=== PATIENT | male | born 1965 | race Caucasian/White ===

== ENCOUNTER → 2020-08-07 | Outpatient (CLI) | payer BC, MEDICARE ==
[2020-08-07 11:25] LABS: African American GFR (CKD) >90 (>60 ml/min/1.73 sqM); Blood Urea Nitrogen 22 mg/dL (9-20); Non-African American GFR(CKD) >90 (>60 ml/min/1.73 sqM)
--- NOTE | 2020-08-07 12:42 | CT ---
EXAMINATION TYPE: CT abdomen pelvis w con DATE OF EXAM: 08/07/2020 COMPARISON: None HISTORY: Ulcerative pancolitis CT DLP: 1634 mGycm CONTRAST: CT scan of the abdomen and pelvis is performed with Oral Contrast and with IV Contrast, patient injec juan a with 100 ml mL of Isovue 300. FINDINGS: LUNG BASES-: No visible nodule. No infiltrate. LIVER/GB: The gallbladder is surgically absent. No space occupying hepatic lesion. Biliary tree is of normal caliber. PANCREAS: No inflammation. No distinct mass. SPLEEN: No splenic enlargement. No lesion seen. ADRENALS: No nodule. No thickening. KIDNEYS/BLADDER: Atrophic changes left kidney with focal calcification noted. Compensatory hypertrop hy right kidney. No hydronephrosis. No nephrolithiasis. No distinct renal mass. Urinary bladder gr ossly unremarkable. BOWEL: Normal appendix. Normal bowel caliber. No inflammation. Sliding-type hiatal hernia. Surgical anastomosis of sigmoid colon. GENITAL ORGANS: No gross abnormality. LYMPH NODES: No greater than 1cm abdominal or pelvic lymph nodes are appreciated. AORTA: No significant abnormality. OSSEOUS STRUCTURES: No significant abnormality is seen. OTHER: No significant additional abnormality is seen. IMPRESSION: 1. No evidence for inflammatory change at this time.
== END | disposition home or self-care (01) ==
LOC: RADCTMAIN 09:33
PROVIDERS: ATTEND Family Medicine
DX: K51.00 Ulcerative (chronic) pancolitis without complications (principal); R10.9 Unspecified abdominal pain
CPT/HCPCS: 82565; 84520; 74177; 36415; Q9967

== ENCOUNTER 2021-07-03 11:19 | Observation (INO) | payer MEDICARE ==
[2021-07-03] MEDS ORDERED: SODIUM CHLORIDE 0.9% 1,000 ML IV STA (12:12)
[2021-07-03 12:47] LABS: Basophils % (A) 1 %; Eosinophils # (A) 0.2 k/uL (0-0.7); Eosinophils % (A) 3 %; HGB 15.6 gm/dL (13.0-17.5); Lymphocytes # (A) 0.9 k/uL (1.0-4.8); Lymphocytes % (A) 16 %; MCH 32.3 pg (25.0-35.0); MCHC 33.8 g/dL (31.0-37.0); MCV 95.6 fL (80.0-100.0); Mean Platelet Volume 8.1; Monocytes # (A) 0.3 k/uL (0-1.0); Monocytes % (A) 6 %; Neutrophils # (A) 3.9 k/uL (1.3-7.7); Neutrophils % (A) 71 %; Platelet Count 364 k/uL (150-450); RBC 4.81 m/uL (4.30-5.90); RDW 13.8 % (11.5-15.5); WBC 5.4 k/uL (3.8-10.6)
[2021-07-03 13:04] LABS: ALT 42 U/L (4-49); AST 29 U/L (17-59); African American GFR (CKD) >90 (>60 ml/min/1.73 sqM); Albumin 4.1 g/dL (3.5-5.0); Alkaline Phosphatase 72 U/L (38-126); Amylase 95 U/L (30-110); Anion Gap 19 mmol/L; Blood Urea Nitrogen 17 mg/dL (9-20); Calcium 10.7 mg/dL (8.4-10.2); Carbon Dioxide 19 mmol/L (22-30); Chloride 101 mmol/L (98-107); Glucose 185 mg/dL (74-99); Lipase 576 U/L (23-300); Non-African American GFR(CKD) 88 (>60 ml/min/1.73 sqM); Potassium 3.2 mmol/L (3.5-5.1); Sodium 139 mmol/L (137-145); Total Bilirubin 0.8 mg/dL (0.2-1.3); Total Protein 7.1 g/dL (6.3-8.2)
[2021-07-03] MEDS ORDERED: ONDANSETRON 4 MG/2 ML VIAL IVP STA (13:08)
--- NOTE | 2021-07-03 13:09 | ED ---
General Adult HPI - General Chief complaint: Abdominal Pain Stated complaint: nausea & abd pain Time Seen by Provider: 07/03/21 11:52 Source: patient, EMS, RN notes reviewed Mode of arrival: EMS Limitations: no limitations - History of Present Illness Initial comments: 56-year-old male with a complicated past medical history including diabetes mellitus, hypertension, GERD, renal disease, Hudson's disease, Chris's, presents to the emergency room for several complaints. Patient reports he has had abdominal pain for 3 weeks. States it seems to be worsening. States he now has left upper back pain radiating down the left arm. If this could be related to a rash as he has a rash on his lower back and upper back and right leg. Patient states that he was diagnosed with shingles last month by a roving frame tender. Patient states that for the past week he has not been able to eat or drink much. He has been nauseous. Patient has no other complaints at this time including shortness of breath, chest pain, nausea or vomiting, headache, or visual changes. - Related Data Home Medications Medication Instructions Recorded Confirmed CLIDINIUM-chlordiazePOXIDE [Librax] 1 cap PO BID 07/03/21 07/03/21 Gabapentin 300 mg PO BID PRN 07/03/21 07/03/21 Gabapentin 300 mg PO HS 07/03/21 07/03/21 Insulin NPH Human Isophane 50 units SQ PC-BID 07/03/21 07/03/21 [NovoLIN N] Insulin Regular, Human [NovoLIN R] See Protocol SQ AC-TID 07/03/21 07/03/21 Levothyroxine Sodium [Synthroid] 75 mcg PO HS 07/03/21 07/03/21 Losartan/Hydrochlorothiazide 1 tab PO HS 07/03/21 07/03/21 [Hyzaar 100-25 Tablet] Mercaptopurine [Purinethol] 50 mg PO BID 07/03/21 07/03/21 Metoclopramide [Reglan] 10 mg PO ACHS 07/03/21 07/03/21 Morphine Sulfate [Ms Contin] 15 mg PO HS 07/03/21 07/03/21 Naproxen 500 mg PO BID 07/03/21 07/03/21 Omeprazole 20 mg PO DAILY PRN 07/03/21 07/03/21 Omeprazole 20 mg PO HS 07/03/21 07/03/21 Testosterone [Androgel 1.62% Gel 1 pump TOPICAL DAILY 07/03/21 07/03/21 Pump] amLODIPine [Norvasc] 10 mg PO HS 07/03/21 07/03/21 minoxidiL [Loniten] 2.5 mg PO HS 07/03/21 07/03/21 oxyCODONE-APAP 10-325MG [Percocet 1 tab PO BID PRN 07/03/21 07/03/21 10-325 mg] oxyCODONE-APAP 10-325MG [Percocet 1 tab PO Q4H 07/03/21 07/03/21 10-325 mg] predniSONE 1 mg PO BID 07/03/21 07/03/21 Allergies Allergy/AdvReac Type Severity Reaction Status Date / Time Sulfa (Sulfonamide Allergy Rash/Hives Verified 07/03/21 13:46 Antibiotics) amoxicillin AdvReac Diarrhea/C Verified 07/03/21 13:46 Diff hydromorphone [From Dilaudid] AdvReac Rash/Hives Verified 07/03/21 13:46 Macrolide Antibiotics AdvReac Diarrhea/C Verified 07/03/21 13:46 Diff Oxazolidinone Antibacterials AdvReac Diarrhea/C Verified 07/03/21 13:46 Diff Penicillins AdvReac Diarrhea/C Verified 07/03/21 13:46 Diff Review of Systems ROS Statement: Those systems with pertinent positive or pertinent negative responses have been documented in the HPI. ROS Other: All systems not noted in ROS Statement are negative. Past Medical History Past Medical History: Diabetes Mellitus, GERD/Reflux, Hypertension, Musculoskeletal Disorder, Neurologic Disorder, Renal Disease, Thyroid Disorder Additional Past Medical History / Comment(s): Cushings syndrome, uncontrolled diabetes, hasimoto's, Metabolic Muscular Dystophy, Shingles (May 2021), partially functioning kidneys History of Any Multi-Drug Resistant Organisms: None Reported Past Surgical History: Appendectomy, Bowel Resection, Cholecystectomy Additional Past Surgical History / Comment(s): lipoma removals, sinus surgery, Past Psychological History: Anxiety Smoking Status: Former smoker Past Alcohol Use History: None Reported Past Drug Use History: None Reported General Exam Limitations: no limitations General appearance: alert, in no apparent distress Head exam: Present: atraumatic Eye exam: Present: normal appearance, PERRL, EOMI. Absent: scleral icterus, c onjunctival injection ENT exam: Present: normal exam, mucous membranes moist Neck exam: Present: normal inspection, full ROM. Absent: tenderness Respiratory exam: Present: normal lung sounds bilaterally. Absent: respiratory distress, wheezes Cardiovascular Exam: Present: regular rate, normal rhythm, normal heart sounds GI/Abdominal exam: Present: soft, tenderness (minimal minimal generalized abdominal tenderness without guarding or rebound), normal bowel sounds. Absent: distended, guarding, rebound Extremities exam: Present: normal capillary refill (radial pulse 2+ RUE) Course Vital Signs 07/03/21 11:25 Temperature 98.4 F Pulse Rate 116 H Respiratory 18 Rate Blood Pressure 120/80 O2 Sat by Pulse 94 L Oximetry Medical Decision Making - Medical Decision Making Vitals are stable. She presents for several complaints. Patient has abdominal pain and left upper back pain radiating to the left arm. CBC is unremarkable. CMP does reveal mild hypokalemia, lipase is 576. Urinalysis does show glucose and ketones. COVID-19 is negative. Given tachycardia hypoxia and upper back pain d-dimer was ordered which was elevated. CTA was obtained which showed no pulmonary embolism. CT of the abdomen and pelvis revealed some biliary dilation. At this time patient will be admitted for GI consultation and likely ERCP or MRCP. - Lab Data Result diagrams: 07/03/21 12:34 07/03/21 12:34 Lab Results 07/03/21 07/03/21 07/03/21 Range/Units 12:34 12:34 12:34 WBC 5.4 (3.8-10.6) k/uL RBC 4.81 (4.30-5.90) m/uL Hgb 15.6 (13.0-17.5) gm/dL Hct 46.0 (39.0-53.0) % MCV 95.6 (80.0-100.0) fL MCH 32.3 (25.0-35.0) pg MCHC 33.8 (31.0-37.0) g/dL RDW 13.8 (11.5-15.5) % Plt Count 364 (150-450) k/uL MPV 8.1 Neutrophils % 71 % Lymphocytes % 16 % Monocytes % 6 % Eosinophils % 3 % Basophils % 1 % Neutrophils # 3.9 (1.3-7.7) k/uL Lymphocytes # 0.9 L (1.0-4.8) k/uL Monocytes # 0.3 (0-1.0) k/uL Eosinophils # 0.2 (0-0.7) k/uL Basophils # 0.0 (0-0.2) k/uL PT 11.0 (9.0-12.0) sec INR 1.0 (<1.2) APTT 25.0 (22.0-30.0) sec D-Dimer 1.74 H (<0.60) mg/L FEU Sodium 139 (137-145) mmol/L Potassium 3.2 L (3.5-5.1) mmol/L Chloride 101 (98-107) mmol/L Carbon Dioxide 19 L (22-30) mmol/L Anion Gap 19 mmol/L BUN 17 (9-20) mg/dL Creatinine 0.97 (0.66-1.25) mg/dL Est GFR (CKD-EPI)AfAm >90 (>60 ml/min/1.73 sqM) Est GFR (CKD-EPI)NonAf 88 (>60 ml/min/1.73 sqM) Glucose 185 H (74-99) mg/dL Plasma Lactic Acid Paras (0.7-2.0) mmol/L Calcium 10.7 H (8.4-10.2) mg/dL Total Bilirubin 0.8 (0.2-1.3) mg/dL AST 29 (17-59) U/L ALT 42 (4-49) U/L Alkaline Phosphatase 72 (38-126) U/L Troponin I (0.000-0.034) ng/mL Total Protein 7.1 (6.3-8.2) g/dL Albumin 4.1 (3.5-5.0) g/dL Amylase 95 (30-110) U/L Lipase 576 H (23-300) U/L Urine Color Urine Appearance (Clear) Urine pH (5.0-8.0) Ur Specific [place] (1.001-1.035) Urine Protein (Negative) Urine Glucose (UA) (Negative) Urine Ketones (Negative) Urine Blood (Negative) Urine Nitrite (Negative) Urine Bilirubin (Negative) Urine Urobilinogen (<2.0) mg/dL Ur Leukocyte Esterase (Negative) Urine RBC (0-5) /hpf Urine WBC (0-5) /hpf Ur Squamous Epith Cells (0-4) /hpf Hyaline Casts (0-2) /lpf Urine Mucus (None) /hpf Coronavirus (PCR) (Not Detectd) 07/03/21 07/03/21 07/03/21 Range/Units 12:34 12:34 12:56 WBC (3.8-10.6) k/uL RBC (4.30-5.90) m/uL Hgb (13.0-17.5) gm/dL Hct (39.0-53.0) % MCV (80.0-100.0) fL MCH (25.0-35.0) pg MCHC (31.0-37.0) g/dL RDW (11.5-15.5) % Plt Count (150-450) k/uL MPV Neutrophils % % Lymphocytes % % Monocytes % % Eosinophils % % Basophils % % Neutrophils # (1.3-7.7) k/uL Lymphocytes # (1.0-4.8) k/uL Monocytes # (0-1.0) k/uL Eosinophils # (0-0.7) k/uL Basophils # (0-0.2) k/uL PT (9.0-12.0) sec INR (<1.2) APTT (22.0-30.0) sec D-Dimer (<0.60) mg/L FEU Sodium (137-145) mmol/L Potassium (3.5-5.1) mmol/L Chloride (98-107) mmol/L Carbon Dioxide (22-30) mmol/L Anion Gap mmol/L BUN (9-20) mg/dL Creatinine (0.66-1.25) mg/dL Est GFR (CKD-EPI)AfAm (>60 ml/min/1.73 sqM) Est GFR (CKD-EPI)NonAf (>60 ml/min/1.73 sqM) Glucose (74-99) mg/dL Plasma Lactic Acid Paras 1.2 (0.7-2.0) mmol/L Calcium (8.4-10.2) mg/dL Total Bilirubin (0.2-1.3) mg/dL AST (17-59) U/L ALT (4-49) U/L Alkaline Phosphatase (38-126) U/L Troponin I <0.012 (0.000-0.034) ng/mL Total Protein (6.3-8.2) g/dL Albumin (3.5-5.0) g/dL Amylase (30-110) U/L Lipase (23-300) U/L Urine Color Urine Appearance (Clear) Urine pH (5.0-8.0) Ur Specific [place] (1.001-1.035) Urine Protein (Negative) Urine Glucose (UA) (Negative) Urine Ketones (Negative) Urine Blood (Negative) Urine Nitrite (Negative) Urine Bilirubin (Negative) Urine Urobilinogen (<2.0) mg/dL Ur Leukocyte Esterase (Negative) Urine RBC (0-5) /hpf Urine WBC (0-5) /hpf Ur Squamous Epith Cells (0-4) /hpf Hyaline Casts (0-2) /lpf Urine Mucus (None) /hpf Coronavirus (PCR) Not Detected (Not Detectd) 07/03/21 Range/Units 13:32 WBC (3.8-10.6) k/uL RBC (4.30-5.90) m/uL Hgb (13.0-17.5) gm/dL Hct (39.0-53.0) % MCV (80.0-100.0) fL MCH (25.0-35.0) pg MCHC (31.0-37.0) g/dL RDW (11.5-15.5) % Plt Count (150-450) k/uL MPV Neutrophils % % Lymphocytes % % Monocytes % % Eosinophils % % Basophils % % Neutrophils # (1.3-7.7) k/uL Lymphocytes # (1.0-4.8) k/uL Monocytes # (0-1.0) k/uL Eosinophils # (0-0.7) k/uL Basophils # (0-0.2) k/uL PT (9.0-12.0) sec INR (<1.2) APTT (22.0-30.0) sec D-Dimer (<0.60) mg/L FEU Sodium (137-145) mmol/L Potassium (3.5-5.1) mmol/L Chloride (98-107) mmol/L Carbon Dioxide (22-30) mmol/L Anion Gap mmol/L BUN (9-20) mg/dL Creatinine (0.66-1.25) mg/dL Est GFR (CKD-EPI)AfAm (>60 ml/min/1.73 sqM) Est GFR (CKD-EPI)NonAf (>60 ml/min/1.73 sqM) Glucose (74-99) mg/dL Plasma Lactic Acid Paras (0.7-2.0) mmol/L Calcium (8.4-10.2) mg/dL Total Bilirubin (0.2-1.3) mg/dL AST (17-59) U/L ALT (4-49) U/L Alkaline Phosphatase (38-126) U/L Troponin I (0.000-0.034) ng/mL Total Protein (6.3-8.2) g/dL Albumin (3.5-5.0) g/dL Amylase (30-110) U/L Lipase (23-300) U/L Urine Color Yellow Urine Appearance Clear (Clear) Urine pH 5.5 (5.0-8.0) Ur Specific [place] 1.028 (1.001-1.035) Urine Protein 1+ H (Negative) Urine Glucose (UA) 3+ H (Negative) Urine Ketones 4+ H (Negative) Urine Blood Negative (Negative) Urine Nitrite Negative (Negative) Urine Bilirubin 1+ H (Negative) Urine Urobilinogen 2.0 (<2.0) mg/dL Ur Leukocyte Esterase Negative (Negative) Urine RBC <1 (0-5) /hpf Urine WBC 2 (0-5) /hpf Ur Squamous Epith Cells <1 (0-4) /hpf Hyaline Casts 18 H (0-2) /lpf Urine Mucus Many H (None) /hpf Coronavirus (PCR) (Not Detectd) Disposition Clinical Impression: Abdominal pain, Dilation of biliary tract, Pancreatitis, Hypokalemia Disposition: ADMITTED IP TO THIS HOSP Is patient prescribed a controlled substance at d/c from ED?: No Referrals: Joaquin Becerra MD [Primary Care Provider] - 1-2 days Time of Disposition: 16:23
--- NOTE | 2021-07-03 13:10 | XR ---
EXAMINATION TYPE: XR chest 2V DATE OF EXAM: 07/03/2021 COMPARISON: NONE HISTORY: Nausea and chest pain. TECHNIQUE: Frontal and lateral views of the chest are obtained. FINDINGS: There is linear opacity consistent with scarring and/or atelectasis posterior lower lung o n lateral view less well seen on frontal view. No pleural effusion or pneumothorax seen bilaterally. The cardiac silhouette size is within normal limits. Levoconvex scoliosis centered lower thoracic spine is present. IMPRESSION: Posterior basilar opacity favors atelectasis and/or scarring.
[2021-07-03 14:14] LABS: Appearance,Urine Clear (Clear); Bilirubin,Urine 1+ (Negative); Blood,Urine Negative (Negative); Color,Urine Yellow; Glucose,Urine (UA) 3+ (Negative); Hyaline Casts,Urine 18 /lpf (0-2); Leukocyte Esterase,Urine Negative (Negative); Mucus,Urine Many /hpf; Nitrite,Urine Negative (Negative); PH, Urine 5.5 (5.0-8.0); Protein,Urine 1+ (Negative); RBC,Urine <1 /hpf (0-5); Specific Gravity,Urine 1.028 (1.001-1.035); Squamous Epithelial Cell,Urine <1 /hpf (0-4); WBC,Urine 2 /hpf (0-5)
[2021-07-03 14:26] LABS: Ketones,Urine 4+ (Negative)
--- NOTE | 2021-07-03 14:58 | CT ---
EXAMINATION TYPE: CT abdomen pelvis w con DATE OF EXAM: 07/03/2021 COMPARISON: CT August 07, 2020 HISTORY: abdominal pain CT DLP: 1503.1 mGycm, Automated Exposure Control for Dose Reduction was Utilized. CONTRAST: CT scan of the abdomen and pelvis is performed without oral but with IV Contrast, patient injected wi th 100 mL of Isovue 370. FINDINGS: LUNG BASES: Please refer to same-day CTA chest study. LIVER/GB: Cholecystectomy clips are redemonstrated. New mild central intrahepatic and extra hepatic b iliary dilatation up to 14 mm coronal image 48 with abrupt tapering just before the duodenal ampulla. Pancreatic duct seen without suspicious greater than 3 mm dilatation, size similar to prior. PANCREAS: No significant abnormality is seen. SPLEEN: No significant abnormality is seen. ADRENALS: No significant abnormality is seen. KIDNEYS: Asymmetric volume loss and cortical thinning in the left kidney redemonstrated. BOWEL: Suboptimal evaluation without enteric contrast. Surgical changes sigmoid colon in the pelvis a xial image 65 redemonstrated. No suspicious small or large bowel dilatation. Susceptibility artifact from surgical clips in the left mid to lower abdomen redemonstrated posteriorly. PROSTATE/SEMINAL VESICLES: No gross abnormality seen. LYMPH NODES: No greater than 1cm new abdominal or pelvic lymph nodes are appreciated. OSSEOUS STRUCTURES: No significant abnormality is seen. OTHER: No significant additional abnormality is seen. IMPRESSION: New mild biliary dilatation without obstructing mass clearly seen. Correlate clinically a nd with lab values. ERCP follow-up may be beneficial to further evaluate based on clinical correlatio n. Otherwise no suspicious new or acute finding present.
--- NOTE | 2021-07-03 15:01 | CT ---
EXAMINATION TYPE: CT chest angio for PE DATE OF EXAM: 07/03/2021 COMPARISON: Same day chest x-ray. HISTORY: chest pain CT DLP: 516 mGycm. Automated Exposure Control for Dose Reduction was Utilized. CONTRAST: CTA scan of the thorax is performed with IV Contrast, patient injected with 100 mL of Isovue 370, pul monary embolism protocol. MIP Images are created on CT scanner and reviewed. FINDINGS: LUNGS: [id number] posterior lower lung linear scarring and/or atelectasis is confirmed. No susp icious focal consolidation. No pleural effusion or pneumothorax seen bilaterally. No suspicious paren chymal masses. MEDIASTINUM: There is suboptimal study with equal dense contrast in the aorta and pulmonary arteries with no convincing CT evidence for acute pulmonary embolism. No thoracic aortic aneurysm or dissecti on seen There are no greater than 1 cm hilar or mediastinal lymph nodes. Tiny pericardial effusion is seen anterior inferior aspect. No cardiomegaly. OTHER: Please refer to same day CT abdomen and pelvis report for complete details on the upper abdome n. IMPRESSION: Suboptimal study without acute pulmonary embolism. [id number] bilateral lower lung linear scarring and/or atelectasis. No suspicious acute pulmonary infiltrate.
[2021-07-03] MEDS ORDERED: MORPHINE SULFATE 4 MG/ML SYRINGE IVP STA (15:57)
[2021-07-03] MEDS ORDERED: POTASSIUM CHLORIDE ER 20 MEQ TAB.ER PO STA (16:22)
[2021-07-03] MEDS ORDERED: NALOXONE 0.4 MG/ML 1 ML VIAL IV PRN ×2 (16:23→17:10)
[2021-07-03] MEDS ORDERED: ACETAMINOPHEN TAB 325 MG TAB PO PRN (16:23)
[2021-07-03] MEDS ORDERED: ONDANSETRON 4 MG/2 ML VIAL IVP PRN (16:23)
[2021-07-03] MEDS ORDERED: GABAPENTIN 300 MG CAP PO PRN (17:11)
[2021-07-03] MEDS ORDERED: PANTOPRAZOLE 40 MG TABLET PO PRN (17:12)
[2021-07-03] MEDS ORDERED: PROCHLORPERAZINE INJ 10 MG/2 ML VIAL IVP PRN (17:13)
[2021-07-03] MEDS: SODIUM CHLORIDE 0.9% 1,000 ML IV SCH (17:51)
[2021-07-03] MEDS: INSULIN ASPART (NovoLOG) 100 UNIT/ML VIAL SQ SCH (18:10)
[2021-07-03] MEDS: METOCLOPRAMIDE 10 MG TAB PO SCH ×3 (18:11→21:13)
[2021-07-03] MEDS: ONDANSETRON 4 MG/2 ML VIAL IVP PRN ×2 (18:14→22:51)
--- NOTE | 2021-07-03 18:25 | P.HPIM ---
History of Present Illness H&P Date: 07/03/21 Chief Complaint: abdominal pain 56 year old man with history of UC, perforated diverticulitis c/b partial colectomy, cholecystectomy, cushings on chronic steroids, chronic pain with narcotic dependence presented for abdominal pain. Patient reports pain for the last 2 weeks, along with poor PO intake. Patient has chronic pain issues with cramping and history of multiple GI issues. He recently had a colonoscopy last Friday which appeared grossly essentially normal, with biopsies pending to rule out colitis, presumably microscopic. Patient also reports that he has had a shingles outbreak which co-incided with his GI symptom onset. Pts ROS is positive for diarrhea, abd pain, chills, nausea, vomiting, weight loss. ROS negative for fevers, chest pain, palps, syncope, presyncope, dizziness, lightheadedness, numbness/weakness in extremities. In the ER, patient was noted to be afebrile, 120/80, heart rate 116, 94% on room air. CBC was unremarkable. Chemistries remarkable for hypokalemia to 3.2, anion gap metabolic acidosis with gap of 19 and bicarbonate 19, hypercalcemia to 10.7, lipase of 576, d-dimer 1.74. UA remarkable for 1+ protein, 3+ ketones, 4+ glucose, 1+ bilirubin, [address] angiography of the chest was negative for pulmonary embolism. CT evidence/pelvis shows new mild biliary dilation without obstructing mass clearly seen recommending ERCP. Patient received IV fluids, morphine, Zofran. Review of Systems All Systems reviewed and pertinent positives and negatives noted in HPI, all other symptoms are negative Past Medical History Past Medical History: Diabetes Mellitus, GERD/Reflux, Hypertension, Musculoskeletal Disorder, Neurologic Disorder, Renal Disease, Thyroid Disorder Additional Past Medical History / Comment(s): Cushings syndrome, uncontrolled diabetes, hasimoto's, Metabolic Muscular Dystophy, Shingles (May 2021), p artially functioning kidneys History of Any Multi-Drug Resistant Organisms: None Reported Past Surgical History: Appendectomy, Bowel Resection, Cholecystectomy Additional Past Surgical History / Comment(s): lipoma removals, sinus surgery, Past Psychological History: Anxiety Smoking Status: Former smoker Past Alcohol Use History: None Reported Past Drug Use History: None Reported Medications and Allergies Home Medications Medication Instructions Recorded Confirmed Type CLIDINIUM-chlordiazePOXIDE [Librax] 1 cap PO BID 07/03/21 07/03/21 History Gabapentin 300 mg PO BID PRN 07/03/21 07/03/21 History Gabapentin 300 mg PO HS 07/03/21 07/03/21 History Insulin NPH Human Isophane 50 units SQ PC-BID 07/03/21 07/03/21 History [NovoLIN N] Insulin Regular, Human [NovoLIN R] See Protocol SQ AC-TID 07/03/21 07/03/21 History Levothyroxine Sodium [Synthroid] 75 mcg PO HS 07/03/21 07/03/21 History Losartan/Hydrochlorothiazide 1 tab PO HS 07/03/21 07/03/21 History [Hyzaar 100-25 Tablet] Mercaptopurine [Purinethol] 50 mg PO BID 07/03/21 07/03/21 History Metoclopramide [Reglan] 10 mg PO ACHS 07/03/21 07/03/21 History Morphine Sulfate [Ms Contin] 15 mg PO HS 07/03/21 07/03/21 History Naproxen 500 mg PO BID 07/03/21 07/03/21 History Omeprazole 20 mg PO DAILY PRN 07/03/21 07/03/21 History Omeprazole 20 mg PO HS 07/03/21 07/03/21 History Testosterone [Androgel 1.62% Gel 1 pump TOPICAL DAILY 07/03/21 07/03/21 History Pump] amLODIPine [Norvasc] 10 mg PO HS 07/03/21 07/03/21 History minoxidiL [Loniten] 2.5 mg PO HS 07/03/21 07/03/21 History oxyCODONE-APAP 10-325MG [Percocet 1 tab PO BID PRN 07/03/21 07/03/21 History 10-325 mg] oxyCODONE-APAP 10-325MG [Percocet 1 tab PO Q4H 07/03/21 07/03/21 History 10-325 mg] predniSONE 1 mg PO BID 07/03/21 07/03/21 History Allergies Allergy/AdvReac Type Severity Reaction Status Date / Time Sulfa (Sulfonamide Allergy Rash/Hives Verified 07/03/21 13:46 Antibiotics) amoxicillin AdvReac Diarrhea/C Verified 07/03/21 13:46 Diff hydromorphone [From Dilaudid] AdvReac Rash/Hives Verified 07/03/21 13:46 Macrolide Antibiotics AdvReac Diarrhea/C Verified 07/03/21 13:46 Diff Oxazolidinone Antibacterials AdvReac Diarrhea/C Verified 07/03/21 13:46 Diff Penicillins AdvReac Diarrhea/C Verified 07/03/21 13:46 Diff Physical Exam Osteopathic Statement: *. No significant issues noted on an osteopathic structural exam other than those noted in the History and Physical/Consult. Vitals: Vital Signs Temp Pulse Resp BP Pulse Ox 07/03/21 11:25 98.4 F 116 H 18 120/80 94 L Intake and Output 07/03/21 07/03/21 07/03/21 06:59 14:59 22:59 Other: Weight 95.254 kg Gen: awake, alert HEENT: normocephalic, atraumatic, good hearing acuity, moist mucous membranes Resp: good air exchange, breathing comfortably with no accessory muscle use CVS: good distal perfusion x 4, GI: Mild epigastric tenderness and right upper quadrant tenderness, more significant tenderness to palpation the left lower right lower quadrants with no rebound, no guarding : no SPT, no CVAT, malhotra catheter not present MSK: Trace pitting edema, no clubbing Neuro: non-focal, moving all extremities Psych: cooperative, euthymic mood Results CBC & Chem 7: 07/03/21 12:34 07/03/21 12:34 Labs: Abnormal Lab Results - Last 24 Hours (Table) 07/03/21 07/03/21 07/03/21 Range/Units 12:34 12:34 12:34 Lymphocytes # 0.9 L (1.0-4.8) k/uL D-Dimer 1.74 H (<0.60) mg/L FEU Potassium 3.2 L (3.5-5.1) mmol/L Carbon Dioxide 19 L (22-30) mmol/L Glucose 185 H (74-99) mg/dL Calcium 10.7 H (8.4-10.2) mg/dL Lipase 576 H (23-300) U/L Urine Protein (Negative) Urine Glucose (UA) (Negative) Urine Ketones (Negative) Urine Bilirubin (Negative) Hyaline Casts (0-2) /lpf Urine Mucus (None) /hpf 07/03/21 Range/Units 13:32 Lymphocytes # (1.0-4.8) k/uL D-Dimer (<0.60) mg/L FEU Potassium (3.5-5.1) mmol/L Carbon Dioxide (22-30) mmol/L Glucose (74-99) mg/dL Calcium (8.4-10.2) mg/dL Lipase (23-300) U/L Urine Protein 1+ H (Negative) Urine Glucose (UA) 3+ H (Negative) Urine Ketones 4+ H (Negative) Urine Bilirubin 1+ H (Negative) Hyaline Casts 18 H (0-2) /lpf Urine Mucus Many H (None) /hpf Assessment and Plan Assessment: Abdominal pain Mild pancreatitis Dilated biliary tree -Admit to observation -Nausea control -Pain control -IV fluids -GI consult -Nothing by mouth History of partial colectomy History of ulcerative colitis History of cholecystectomy Diabetes type 2 Hypothyroidism Hypertension -Home medications reviewed and reconciled Patient is a full code
[2021-07-03] MEDS: INSULIN NPH 300 UNIT/3 ML VIAL SQ SCH (19:26)
[2021-07-03 20:22] LABS: Glucose,Whole Blood 143 mg/dL (75-99)
[2021-07-03] MEDS ORDERED: PANTOPRAZOLE 40 MG TABLET PO SCH (21:00)
[2021-07-03] MEDS: minoxidiL 2.5 MG TAB PO SCH (21:15)
[2021-07-03] MEDS: LEVOTHYROXINE 75 MCG TAB PO SCH (21:16)
[2021-07-03] MEDS: GABAPENTIN 300 MG CAP PO SCH (21:17)
[2021-07-03] MEDS: CLIDINIUM-chlordiazePOXIDE (2.5-5 MG) CAP PO SCH (21:17)
[2021-07-03] MEDS: amLODIPine 10 MG TAB PO SCH (21:17)
[2021-07-03] MEDS: MERCAPTOPURINE 50 MG TAB PO SCH (21:18)
[2021-07-03] MEDS: MORPHINE SULFATE ER 15 MG TABLET PO SCH (21:21)
[2021-07-03] MEDS: predniSONE 1 MG TAB PO SCH (21:48)
[2021-07-04] MEDS: SODIUM CHLORIDE 0.9% 1,000 ML IV SCH ×5 (01:48→23:56)
[2021-07-04] MEDS: ONDANSETRON 4 MG/2 ML VIAL IVP PRN ×2 (03:17→07:58)
[2021-07-04] MEDS: MORPHINE SULFATE 4 MG/ML SYRINGE IV PRN ×4 (03:18→23:56)
[2021-07-04 07:47] LABS: Basophils % (A) 1 %; Eosinophils # (A) 0.2 k/uL (0-0.7); Eosinophils % (A) 6 %; HCT 46.5 % (39.0-53.0); Lymphocytes # (A) 0.8 k/uL (1.0-4.8); Lymphocytes % (A) 20 %; MCHC 32.2 g/dL (31.0-37.0); MCV 99.3 fL (80.0-100.0); Mean Platelet Volume 7.5; Monocytes # (A) 0.3 k/uL (0-1.0); Monocytes % (A) 7 %; Neutrophils # (A) 2.5 k/uL (1.3-7.7); Neutrophils % (A) 62 %; Platelet Count 322 k/uL (150-450); RBC 4.68 m/uL (4.30-5.90)
[2021-07-04 07:55] LABS: ALT 39 U/L (4-49); AST 32 U/L (17-59); African American GFR (CKD) >90 (>60 ml/min/1.73 sqM); Albumin/Globulin Ratio 1.3; Alkaline Phosphatase 63 U/L (38-126); Anion Gap 18 mmol/L; Blood Urea Nitrogen 10 mg/dL (9-20); Calcium 10.2 mg/dL (8.4-10.2); Carbon Dioxide 14 mmol/L (22-30); Chloride 112 mmol/L (98-107); Glucose 139 mg/dL (74-99); Magnesium 1.6 mg/dL (1.6-2.3); Non-African American GFR(CKD) >90 (>60 ml/min/1.73 sqM); Sodium 144 mmol/L (137-145); Total Bilirubin 0.7 mg/dL (0.2-1.3)
[2021-07-04] MEDS: INSULIN ASPART (NovoLOG) 100 UNIT/ML VIAL SQ SCH ×3 (07:58→17:46)
[2021-07-04 07:59] LABS: Glucose,Whole Blood 134 mg/dL (75-99)
[2021-07-04] MEDS: TESTOSTERONE TOPICAL SCH (09:39)
[2021-07-04] MEDS: INSULIN NPH 300 UNIT/3 ML VIAL SQ SCH ×2 (09:39→17:47)
[2021-07-04] MEDS: PANTOPRAZOLE 40 MG/10 ML VIAL IVP SCH (09:42)
[2021-07-04] MEDS: CLIDINIUM-chlordiazePOXIDE (2.5-5 MG) CAP PO SCH ×2 (09:43→20:05)
[2021-07-04] MEDS: predniSONE 1 MG TAB PO SCH ×2 (09:43→20:05)
[2021-07-04] MEDS: METOCLOPRAMIDE 10 MG TAB PO SCH ×4 (09:44→20:07)
[2021-07-04] MEDS: MERCAPTOPURINE 50 MG TAB PO SCH ×2 (09:44→20:05)
--- NOTE | 2021-07-04 10:34 | P.CONS ---
History of Present Illness - Reason for Consult Consult date: 07/04/21 Dilated biliary duct Requesting physician: Mario Pelletier - Chief Complaint abdominal pain, back pain - History of Present Illness Assessment 56-year-old white male with multiple cold morbidities including ulcerative colitis muscular dystrophy, Chris's, renal disease, Granada's syndrome, diabetes mellitus, GERD, hypertension, recent shingles who presented to the emergency department with complaints of abdominal pain and back pain for the last 3 weeks duration. It is been progressively getting worse over the last few days duration with associated diarrhea. He now is having nausea and vomiting and dry heaves throughout the night. He states his last colonoscopy was last week Friday by which him and his states had findings of diverticulosis. He also has a history of a bowel resection 14-15 years ago when he was diagnosed with his ulcerative colitis. He is also status post cholecystectomy 15 years ago for which he states his gallbladder was not working. He also has listed down as many different ALLERGIES to antibiotics which she states is not true ALLERGIES however he is very prone to C. diff. Denies any blood in his stool. Today's labs WBC 4.0 hemoglobin 15 platelet count 322,000 sodium 144 potassium 4.0 BUN 10 creatinine 0.82 glucose 139 total bilirubin 0.7 AST 32 ALT 39 alkaline phosphatase 63. On admission lipase was mildly elevated at 576. He had a CT abdomen and pelvis with impression stating new mild biliary dilation without obstructing mass clearly seen. Correlate clinically with lab values. ERCP follow-up may be beneficial for further evaluation based on clinical correlation. Otherwise no suspicious no acute findings present. He also had a chest CT angiogram to rule out pulmonary embolism which was negative for PE. He had mild to moderate bilateral lower lung linear scarring or atelectasis. Review of Systems REVIEW OF SYSTEMS: CARDIOPULMONARY: No chest pain or shortness of breath. Gastrointestinal: Severe abdominal pain and epigastric region and lower abdomen. Patient states it radiates directly through his back. He's having nausea and vomiting. No hematemesis, coffee-ground emesis. No rectal bleeding, or melena. GENITOURINARY: No dysuria or hematuria. MUSCULOSKELETAL: Reports normal range of motion., Joint pain. SKIN: No rashes. No jaundice. ENDOCRINE: No chills, fevers. No excessive weight gain or loss. No polydipsia or polyuria. PSYCHIATRIC: Unremarkable. NEUROLOGY: No change in mental status. Denies dizziness, headache. ENT: Vision unremarkable. CONSTITUTIONAL: No recent weight loss. No fever, chills, night sweats. Past Medical History Past Medical History: Diabetes Mellitus, GERD/Reflux, Hypertension, Musculoskeletal Disorder, Neurologic Disorder, Renal Disease, Thyroid Disorder Additional Past Medical History / Comment(s): Cushings syndrome, uncontrolled diabetes, hasimoto's, Metabolic Myopathy, Shingles (May 2021), partially functioning kidneys History of Any Multi-Drug Resistant Organisms: None Reported Past Surgical History: Appendectomy, Bowel Resection, Cholecystectomy Additional Past Surgical History / Comment(s): lipoma removals, sinus surgery x 2, oral surgery Past Psychological History: Anxiety Smoking Status: Never smoker Past Alcohol Use History: None Reported Past Drug Use History: None Reported Medications and Allergies Home Medications Medication Instructions Recorded Confirmed Type CLIDINIUM-chlordiazePOXIDE [Librax] 1 cap PO BID 07/03/21 07/03/21 History Gabapentin 300 mg PO BID PRN 07/03/21 07/03/21 History Gabapentin 300 mg PO HS 07/03/21 07/03/21 History Insulin NPH Human Isophane 50 units SQ PC-BID 07/03/21 07/03/21 History [NovoLIN N] Insulin Regular, Human [NovoLIN R] See Protocol SQ AC-TID 07/03/21 07/03/21 History Levothyroxine Sodium [Synthroid] 75 mcg PO HS 07/03/21 07/03/21 History Losartan/Hydrochlorothiazide 1 tab PO HS 07/03/21 07/03/21 History [Hyzaar 100-25 Tablet] Mercaptopurine [Purinethol] 50 mg PO BID 07/03/21 07/03/21 History Metoclopramide [Reglan] 10 mg PO ACHS 07/03/21 07/03/21 History Morphine Sulfate [Ms Contin] 15 mg PO HS 07/03/21 07/03/21 History Naproxen 500 mg PO BID 07/03/21 07/03/21 History Omeprazole 20 mg PO DAILY PRN 07/03/21 07/03/21 History Omeprazole 20 mg PO HS 07/03/21 07/03/21 History Testosterone [Androgel 1.62% Gel 1 pump TOPICAL DAILY 07/03/21 07/03/21 History Pump] amLODIPine [Norvasc] 10 mg PO HS 07/03/21 07/03/21 History minoxidiL [Loniten] 2.5 mg PO HS 07/03/21 07/03/21 History oxyCODONE-APAP 10-325MG [Percocet 1 tab PO BID PRN 07/03/21 07/03/21 History 10-325 mg] oxyCODONE-APAP 10-325MG [Percocet 1 tab PO Q4H 07/03/21 07/03/21 History 10-325 mg] predniSONE 1 mg PO BID 07/03/21 07/03/21 History Allergies Allergy/AdvReac Type Severity Reaction Status Date / Time Sulfa (Sulfonamide Allergy Rash/Hives Verified 07/03/21 13:46 Antibiotics) amoxicillin AdvReac Diarrhea/C Verified 07/03/21 13:46 Diff hydromorphone [From Dilaudid] AdvReac Rash/Hives Verified 07/03/21 13:46 Macrolide Antibiotics AdvReac Diarrhea/C Verified 07/03/21 13:46 Diff Oxazolidinone Antibacterials AdvReac Diarrhea/C Verified 07/03/21 13:46 Diff Penicillins AdvReac Diarrhea/C Verified 07/03/21 13:46 Diff Physical Exam Vitals: Vital Signs Temp Pulse Pulse Resp BP BP Pulse Ox 07/04/21 01:36 97.6 F 95 18 142/83 99 07/03/21 20:04 98.1 F 99 18 131/90 99 07/03/21 19:35 98.0 F 94 20 126/82 95 07/03/21 11:25 98.4 F 116 H 18 120/80 94 L Intake and Output 07/03/21 07/04/21 07/04/21 22:59 06:59 14:59 Other: # Voids 0 1 Weight 95.254 kg General appearance: The patient is alert, oriented, appears in no acute distress. HET: Head is normocephalic and atraumatic. Conjunctiva pink. Sclera anicteric. Neck: Supple without lymphadenopathy. Trachea midline. Heart: S1 S2. Regular rate and rhythm. Lungs: Clear to auscultation. Abdomen: Soft, diffuse tenderness, nondistended with bowel sounds. No guarding or rigidity. Skin: No rashes. No jaundice. Extremities: Normal skin color and turgor. No pedal edema. Neurological: No focal deficits. Alert and oriented x3. Results CBC & Chem 7: 07/04/21 07:23 07/04/21 07:23 Labs: Abnormal Lab Results - Last 24 Hours (Table) 07/03/21 07/03/21 07/03/21 Range/Units 12:34 12:34 12:34 Lymphocytes # 0.9 L (1.0-4.8) k/uL D-Dimer 1.74 H (<0.60) mg/L FEU Potassium 3.2 L (3.5-5.1) mmol/L Chloride (98-107) mmol/L Carbon Dioxide 19 L (22-30) mmol/L Glucose 185 H (74-99) mg/dL POC Glucose (mg/dL) (75-99) mg/dL Calcium 10.7 H (8.4-10.2) mg/dL Lipase 576 H (23-300) U/L Urine Protein (Negative) Urine Glucose (UA) (Negative) Urine Ketones (Negative) Urine Bilirubin (Negative) Hyaline Casts (0-2) /lpf Urine Mucus (None) /hpf 07/03/21 07/03/21 07/04/21 Range/Units 13:32 20:21 07:23 Lymphocytes # 0.8 L (1.0-4.8) k/uL D-Dimer (<0.60) mg/L FEU Potassium (3.5-5.1) mmol/L Chloride (98-107) mmol/L Carbon Dioxide (22-30) mmol/L Glucose (74-99) mg/dL POC Glucose (mg/dL) 143 H (75-99) mg/dL Calcium (8.4-10.2) mg/dL Lipase (23-300) U/L Urine Protein 1+ H (Negative) Urine Glucose (UA) 3+ H (Negative) Urine Ketones 4+ H (Negative) Urine Bilirubin 1+ H (Negative) Hyaline Casts 18 H (0-2) /lpf Urine Mucus Many H (None) /hpf 07/04/21 07/04/21 Range/Units 07:23 07:58 Lymphocytes # (1.0-4.8) k/uL D-Dimer (<0.60) mg/L FEU Potassium (3.5-5.1) mmol/L Chloride 112 H (98-107) mmol/L Carbon Dioxide 14 L (22-30) mmol/L Glucose 139 H (74-99) mg/dL POC Glucose (mg/dL) 134 H (75-99) mg/dL Calcium (8.4-10.2) mg/dL Lipase (23-300) U/L Urine Protein (Negative) Urine Glucose (UA) (Negative) Urine Ketones (Negative) Urine Bilirubin (Negative) Hyaline Casts (0-2) /lpf Urine Mucus (None) /hpf Comments: CT abdomen and pelvis with impression stating new mild biliary dilation without obstructing mass clearly seen. Correlate clinically with lab values. ERCP follow-up may be beneficial for further evaluation based on clinical correlation. Otherwise no suspicious no acute findings present. Chest CT angiogram to rule out pulmonary embolism which was negative for PE. He had mild to moderate bilateral lower lung linear scarring or atelectasis. Assessment and Plan (1) Abdominal pain Narrative/Plan: 56-year-old male with multiple comorbidities who presented to the emergency department with complaints of abdominal pain over the last 3 weeks duration. He states it has progressively gotten worse over the last few days. Last week he underwent a colonoscopy with his stamp pad finisher which he states had findings of diverticulosis and ulcerative colitis. He has a long-standing history of ulcerative colitis and status post bowel resection 14-15 years ago. He is currently being treated with Librax and Mercaptopurine. He has a history of cholecystectomy approximately 15 years ago for nonfunctioning gallbladder. He also has a significant history of C. diff colitis. He had a CT of the abdomen and pelvis he had mild elevation of his lipase at 576. The CT of the abdomen and pelvis that showed no significant abnormality seen of the pancreas. New m ild biliary dilation without obstructing mass clearly seen. Correlate clinically with lab values. ERCP follow-up may be beneficial to further evaluate based on clinical correlation. Otherwise no suspicious new or acute findings present. LFTs on admission and repeat have been normal with no indic ation of biliary obstruction. Continue to treat symptomatically. Will obtain stool sample for C. diff. Otherwise no plans on ERCP or endoscopic evaluation at this time. Recommend follow-up with patient's stamp pad finisher. Current Visit: Yes Status: Acute Code(s): R10.9 - UNSPECIFIED ABDOMINAL PAIN SNOMED Code(s): 53670611 (2) Dilation of biliary tract Current Visit: Yes Status: Acute Code(s): K83.8 - OTHER SPECIFIED DISEASES OF BILIARY TRACT SNOMED Code(s): 253006542 Plan: 1. Repeat labs this morning CBC, CMP 2. I will change Protonix to 40 mg IV push 3. Patient may have clear liquid diet as tolerated 4. C. diff stool ordered 5. No plans on endoscopic evaluation at this time, LFTs are normal neck consistent with CBD obstruction. 6. Dicyclomine twice a day as needed 7. Continue symptomatic and supportive care Thank you for this consultation, we will continue to follow. Dr. Donnell Jean I agree with the dictator's note, documented as a scribe by Hilaria Katz.
[2021-07-04] MEDS ORDERED: DICYCLOMINE 20 MG TAB PO PRN ×2 (11:45→21:00)
[2021-07-04 12:40] LABS: Glucose,Whole Blood 157 mg/dL (75-99)
--- NOTE | 2021-07-04 13:24 | P.PN ---
Subjective Progress Note Date: 07/04/21 Pt reports no change in symptoms. Objective - Vital Signs Vital signs: Vital Signs Temp 97.7 F 07/04/21 07:00 Pulse 89 07/04/21 07:00 Resp 16 07/04/21 07:00 BP 145/87 07/04/21 07:00 Pulse Ox 97 07/04/21 07:00 Intake & Output 07/03/21 07/04/21 07/04/21 18:59 06:59 18:59 Weight 95.254 kg 95.254 kg Other: # Voids 1 - Exam Gen: awake, alert HEENT: normocephalic, atraumatic, good hearing acuity, moist mucous membranes Resp: good air exchange, breathing comfortably with no accessory muscle use CVS: good distal perfusion x 4, GI: Mild epigastric tenderness and right upper quadrant tenderness, more significant tenderness to palpation the left lower right lower quadrants with no rebound, no guarding : no SPT, no CVAT, malhotra catheter not present MSK: Trace pitting edema, no clubbing Neuro: non-focal, moving all extremities Psych: cooperative, euthymic mood - Labs CBC & Chem 7: 07/04/21 07:23 07/04/21 07:23 Labs: Abnormal Lab Results - Last 24 Hours (Table) 07/03/21 07/03/21 07/03/21 Range/Units 12:34 13:32 20:21 Lymphocytes # (1.0-4.8) k/uL ESR (0-15) mm/hr D-Dimer 1.74 H (<0.60) mg/L FEU Chloride (98-107) mmol/L Carbon Dioxide (22-30) mmol/L Glucose (74-99) mg/dL POC Glucose (mg/dL) 143 H (75-99) mg/dL Lipase (23-300) U/L Urine Protein 1+ H (Negative) Urine Glucose (UA) 3+ H (Negative) Urine Ketones 4+ H (Negative) Urine Bilirubin 1+ H (Negative) Hyaline Casts 18 H (0-2) /lpf Urine Mucus Many H (None) /hpf 07/04/21 07/04/21 07/04/21 Range/Units 07:23 07:23 07:23 Lymphocytes # 0.8 L (1.0-4.8) k/uL ESR (0-15) mm/hr D-Dimer (<0.60) mg/L FEU Chloride 112 H (98-107) mmol/L Carbon Dioxide 14 L (22-30) mmol/L Glucose 139 H (74-99) mg/dL POC Glucose (mg/dL) (75-99) mg/dL Lipase 629 H (23-300) U/L Urine Protein (Negative) Urine Glucose (UA) (Negative) Urine Ketones (Negative) Urine Bilirubin (Negative) Hyaline Casts (0-2) /lpf Urine Mucus (None) /hpf 07/04/21 07/04/21 07/04/21 Range/Units 07:23 07:58 12:38 Lymphocytes # (1.0-4.8) k/uL ESR 22 H (0-15) mm/hr D-Dimer (<0.60) mg/L FEU Chloride (98-107) mmol/L Carbon Dioxide (22-30) mmol/L Glucose (74-99) mg/dL POC Glucose (mg/dL) 134 H 157 H (75-99) mg/dL Lipase (23-300) U/L Urine Protein (Negative) Urine Glucose (UA) (Negative) Urine Ketones (Negative) Urine Bilirubin (Negative) Hyaline Casts (0-2) /lpf Urine Mucus (None) /hpf Assessment and Plan Assessment: Abdominal pain Mild pancreatitis Dilated biliary tree -Admit to observation -Nausea control -Pain control -IV fluids -GI consult -Nothing by mouth History of partial colectomy History of ulcerative colitis History of cholecystectomy Diabetes type 2 Hypothyroidism Hypertension -Home medications reviewed and reconciled Patient is a full code
[2021-07-04 14:52] VITALS: BMI 29.2
[2021-07-04 17:27] LABS: Glucose,Whole Blood 136 mg/dL (75-99)
[2021-07-04] MEDS ORDERED: MORPHINE SULFATE 4 MG/ML SYRINGE IVP STA (17:48)
[2021-07-04] MEDS ORDERED: diazePAM 5 MG TAB PO STA (17:50)
[2021-07-04] MEDS: amLODIPine 10 MG TAB PO SCH (20:04)
[2021-07-04] MEDS: minoxidiL 2.5 MG TAB PO SCH (20:04)
[2021-07-04] MEDS: MORPHINE SULFATE ER 15 MG TABLET PO SCH (20:04)
[2021-07-04] MEDS: LEVOTHYROXINE 75 MCG TAB PO SCH (20:05)
[2021-07-04] MEDS: GABAPENTIN 300 MG CAP PO SCH (20:05)
[2021-07-04 20:19] LABS: Glucose,Whole Blood 134 mg/dL (75-99)
[2021-07-05 02:47] VITALS: RESP 18
[2021-07-05] MEDS: MORPHINE SULFATE 4 MG/ML SYRINGE IV PRN ×2 (03:25→08:42)
[2021-07-05] MEDS: SODIUM CHLORIDE 0.9% 1,000 ML IV SCH (07:09)
[2021-07-05 07:39] LABS: Glucose,Whole Blood 157 mg/dL (75-99)
[2021-07-05] MEDS: INSULIN ASPART (NovoLOG) 100 UNIT/ML VIAL SQ SCH ×2 (08:31→12:23)
[2021-07-05] MEDS: INSULIN NPH 300 UNIT/3 ML VIAL SQ SCH (08:31)
[2021-07-05] MEDS: TESTOSTERONE TOPICAL SCH (08:32)
[2021-07-05] MEDS: METOCLOPRAMIDE 10 MG TAB PO SCH ×2 (08:41→13:03)
[2021-07-05] MEDS: MERCAPTOPURINE 50 MG TAB PO SCH (08:41)
[2021-07-05] MEDS: predniSONE 1 MG TAB PO SCH (08:41)
[2021-07-05] MEDS: ONDANSETRON 4 MG/2 ML VIAL IVP PRN (08:42)
[2021-07-05] MEDS: PANTOPRAZOLE 40 MG/10 ML VIAL IVP SCH (08:42)
[2021-07-05] MEDS: CLIDINIUM-chlordiazePOXIDE (2.5-5 MG) CAP PO SCH ×2 (09:07→09:08)
[2021-07-05] MEDS ORDERED: diazePAM 5 MG TAB PO PRN (10:22)
[2021-07-05] MEDS ORDERED: polyethylene glycoL 3350 17 GM POWD.PACK PO SCH (10:30)
--- NOTE | 2021-07-05 10:53 | P.PN ---
Subjective Progress Note Date: 07/05/21 Principal diagnosis: Abdominal pain 56-year-old male seen in follow-up admitted for abdominal pain with history of chronic pain syndrome related to multiple comorbidities including muscular dystrophy. Patient is on multiple narcotics and pain medications and has a history of constipation needing MiraLAX daily. Patient came in for abdominal pain which he described as diffuse associated with diarrhea. Patient was recently diagnosed with shingles approximately 3 weeks ago for which he was given antivirals and antibiotics doxycycline which symptoms began shortly following. However patient has not had any further diarrhea since he's been hospitalized and had only one episode of loose stool yesterday morning which was nonbloody. C. difficile toxin has been ordered however patient again has had no further bowel movements. Patient states today pain is worse but it's more in his thigh muscles, back and feels more abdominal muscle. He still states he's had nausea but no vomiting. He has been afebrile. Objective - Vital Signs Vital signs: Vital Signs Temp 97.5 F L 07/05/21 07:00 Pulse 105 H 07/05/21 07:00 Resp 18 07/05/21 07:00 BP 130/74 07/05/21 07:00 Pulse Ox 98 07/05/21 07:00 Intake & Output 07/04/21 07/05/21 07/05/21 18:59 06:59 18:59 Intake Total 1300 118 Balance 1300 118 Weight 95.254 kg Intake: Intake, IV Titration 1300 Amount Sodium Chloride 0.9% 1, 1300 000 ml @ 130 mls/hr IV . [id number] [facility] Rx#:[id number] Oral 118 Other: # Voids 2 - Exam General appearance: The patient is alert, oriented, appears in no acute distress. HET: Head is normocephalic and atraumatic. Conjunctiva pink. Sclera anicteric. Neck: Supple without lymphadenopathy. Abdomen: Soft, mild diffuse tenderness, nondistended with bowel sounds. No guarding or rigidity. Extremities: Normal skin color and turgor. No pedal edema Skin: No rashes, no jaundice Neurological: No focal deficits. Alert and oriented x 3. - Labs CBC & Chem 7: 07/04/21 07:23 07/04/21 07:23 Labs: Abnormal Lab Results - Last 24 Hours (Table) 07/04/21 07/04/21 07/04/21 Range/Units 07:23 07:23 12:38 ESR 22 H (0-15) mm/hr POC Glucose (mg/dL) 157 H (75-99) mg/dL Lipase 629 H (23-300) U/L 07/04/21 07/04/21 07/05/21 Range/Units 17:26 20:18 07:35 ESR (0-15) mm/hr POC Glucose (mg/dL) 136 H 134 H 157 H (75-99) mg/dL Lipase (23-300) U/L Assessment and Plan (1) Abdominal pain Narrative/Plan: 56-year-old male with multiple comorbidities who presented to the emergency department with complaints of abdominal pain over the last 3 weeks duration. He states it has progressively gotten worse over the last few days. Last week he underwent a colonoscopy with his asphalt paver which he states had findings of diverticulosis and ulcerative colitis. He has a long-standing history of ulcerative colitis and status post bowel resection 14-15 years ago. He is currently being treated with Librax and Mercaptopurine. He has a history of cholecystectomy approximately 15 years ago for nonfunctioning gallbladder. He also has a significant history of C. diff colitis. He had a CT of the abdomen and pelvis he had mild elevation of his lipase at 576. The CT of the abdomen and pelvis that showed no significant abnormality seen of the pancreas. New mild biliary dilation without obstructing mass clearly seen. Correlate clinically with lab values. ERCP follow-up may be beneficial to further evaluate based on clinical correlation. Otherwise no suspicious new or acute findings present. LFTs on admission and repeat have been normal with no indication of biliary obstruction. Mild elevation of lipase consistent with pancreatitis which could be related to antibiotic use. Continue to treat symptomatically. Will obtain stool sample for C. diff. Otherwise no plans on ERCP or endoscopic evaluation at this time. Recommend follow-up with patient's asphalt paver. Current Visit: Yes Status: Acute Code(s): R10.9 - UNSPECIFIED ABDOMINAL PAIN SNOMED Code(s): 16477869 (2) Dilation of biliary tract Narrative/Plan: No plan on endoscopic evaluation. Labs are not consistent with biliary obstruction. Likely mild dilation related to previous cholecystectomy. Current Visit: Yes Status: Acute Code(s): K83.8 - OTHER SPECIFIED DISEASES OF BILIARY TRACT SNOMED Code(s): 534432637 (3) Nausea Current Visit: Yes Status: Acute Code(s): R11.0 - NAUSEA SNOMED Code(s): 079288595 Plan: 1. Continue symptomatic and supportive care 2. Antiemetics as needed 3. Advance to full liquid diet, Glucerna ordered. Advance diet as tolerated 4. C. diff stool ordered 5. No plans on endoscopic evaluation at this time, LFTs are normal neck consistent with CBD obstruction. 6. Dicyclomine twice a day as needed 7. Discussed with patient constipation likely related to multiple narcotic use as well as abdominal pain could be related to constipation and possible gastroparesis related to narcotic use and diabetes. Recommend weaning from narcotic use. MiraLAX added daily. Thank you for this consultation, patient is cleared for discharge from gastroenterology. Recommend outpatient follow-up with patient's gas troenterologist. Dr. Donnell Jean I agree with the dictator's note, documented as a scribe by Hilaria Katz.
[2021-07-05] MEDS ORDERED: HYDROcodone/APAP 5-325MG 1 EACH TAB PO PRN (11:48)
[2021-07-05] MEDS: predniSONE 20 MG TAB PO SCH ×2 (11:49→12:38)
[2021-07-05 12:18] LABS: Glucose,Whole Blood 129 mg/dL (75-99)
[2021-07-05 14:18] VITALS: BP 127/72; PULSE 102; TEMP 98
--- NOTE | 2021-07-05 16:17 | P.DS ---
Providers Date of admission: 07/03/21 16:34 Expected date of discharge: 07/05/21 Attending physician: Mario Pelletier MD Consults: 07/03/21 16:24 Consult Physician Routine Consulting Provider: Domi Jean Consult Reason/Comments: biliary ductal dilation, hx of cholecystectomy Do you want consulting provider notified?: Yes Primary care physician: [facility] Course: Abdominal pain Mild pancreatitis Dilated biliary tree -Admitted to observation. Nausea, pain control provided. IVF were administered. GI consulted regarding dilated biliary tree, and they did not believe this was causing patient's symptoms. The dilation itself did not represent obstruction or even partial obstruction based on LFTs. ERCP was deferred to outpatient. Pt tolerated CLD with ensure by the time of discharge. Counseled on eating smaller more frequent meals/day. 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 He was counseled on narcotic tolerance overtime which develops into exquisite sensitivity to pain called hyperesthesia. Also counseled on the GI effects of narcotics rendering the gut immobile which can lead to his GI distress. I advised that he shelter discontinue his narcotic medications with the supervision of a pain specialist or his PCP. Pt also had pain with muscle spasms which resolved with valium, and he was prescribed a short dose of this on discharge. Regarding his reported "rare genetic disorder" of metabolic myopathy - I recommended he revisit with his specialist who diagnosed this to obtain further follow up recommendations as needed. Assessment: Gen: awake, alert HEENT: normocephalic, atraumatic, good hearing acuity, moist mucous membranes Resp: good air exchange, breathing comfortably with no accessory muscle use CVS: good distal perfusion x 4, GI: Mild epigastric tenderness and right upper quadrant tenderness, more significant tenderness to palpation the left lower right lower quadrants with no rebound, no guarding : no SPT, no CVAT, malhotra catheter not present MSK: Trace pitting edema, no clubbing Neuro: non-focal, moving all extremities Psych: cooperative, euthymic mood Patient Condition at Discharge: Good Plan - Discharge Summary Discharge Rx Participant: Yes New Discharge Prescriptions: New diazePAM [Valium] 5 mg PO TID PRN #9 tab PRN Reason: for muscle spasms, pain HYDROcodone/APAP 5-325MG [[place] 5-325] 1 each PO Q4HR PRN #18 tab PRN Reason: Pain Continue Metoclopramide [Reglan] 10 mg PO ACHS Insulin NPH Human Isophane [NovoLIN N] 50 units SQ PC-BID CLIDINIUM-chlordiazePOXIDE [Librax] 1 cap PO BID Morphine Sulfate [Ms Contin] 15 mg PO HS oxyCODONE-APAP 10-325MG [Percocet 10-325 mg] 1 tab PO Q4H minoxidiL [Loniten] 2.5 mg PO HS Gabapentin 300 mg PO BID PRN PRN Reason: Pain amLODIPine [Norvasc] 10 mg PO HS Levothyroxine Sodium [Synthroid] 75 mcg PO HS Mercaptopurine [Purinethol] 50 mg PO BID Naproxen 500 mg PO BID predniSONE 1 mg PO BID Insulin Regular, Human [NovoLIN R] See Protocol SQ AC-TID oxyCODONE-APAP 10-325MG [Percocet 10-325 mg] 1 tab PO BID PRN PRN Reason: Breakthrough Pain Omeprazole 20 mg PO DAILY PRN PRN Reason: Heartburn Omeprazole 20 mg PO HS Gabapentin 300 mg PO HS Testosterone [Androgel 1.62% Gel Pump] 1 pump TOPICAL DAILY Discontinued Losartan/Hydrochlorothiazide [Hyzaar 100-25 Tablet] 1 tab PO HS Discharge Medication List CLIDINIUM-chlordiazePOXIDE [Librax] 1 cap PO BID 07/03/21 [History] Gabapentin 300 mg PO BID PRN 07/03/21 [History] Gabapentin 300 mg PO HS 07/03/21 [History] Insulin NPH Human Isophane [NovoLIN N] 50 units SQ PC-BID 07/03/21 [History] Insulin Regular, Human [NovoLIN R] See Protocol SQ AC-TID 07/03/21 [History] Levothyroxine Sodium [Synthroid] 75 mcg PO HS 07/03/21 [History] Mercaptopurine [Purinethol] 50 mg PO BID 07/03/21 [History] Metoclopramide [Reglan] 10 mg PO ACHS 07/03/21 [History] Morphine Sulfate [Ms Contin] 15 mg PO HS 07/03/21 [History] Naproxen 500 mg PO BID 07/03/21 [History] Omeprazole 20 mg PO DAILY PRN 07/03/21 [History] Omeprazole 20 mg PO HS 07/03/21 [History] Testosterone [Androgel 1.62% Gel Pump] 1 pump TOPICAL DAILY 07/03/21 [History] amLODIPine [Norvasc] 10 mg PO HS 07/03/21 [History] minoxidiL [Loniten] 2.5 mg PO HS 07/03/21 [History] oxyCODONE-APAP 10-325MG [Percocet 10-325 mg] 1 tab PO BID PRN 07/03/21 [History] oxyCODONE-APAP 10-325MG [Percocet 10-325 mg] 1 tab PO Q4H 07/03/21 [History] predniSONE 1 mg PO BID 07/03/21 [History] HYDROcodone/APAP 5-325MG [[place] 5-325] 1 each PO Q4HR PRN #18 tab 07/05/21 [Rx] diazePAM [Valium] 5 mg PO TID PRN #9 tab 07/05/21 [Rx] Follow up Appointment(s)/Referral(s): Joaquin Becerra MD [Medical Doctor] - 1-2 days [facility], [NON-STAFF] - 1-2 Days Patient Instructions/Handouts: Abdominal Pain (ED) Activity/Diet/Wound Care/Special Instructions: Regarding Diet, weight loss: Please do 5-7 small meals per day instead of 2-3 large meals/day Please supplement nutrition with ensure or boost three times/day Avoid fatty rich foods Stick to bland foods and high calorie liquid based meals to improve absorption If ongoing issues, have PCP refer you to a network operations project manager Regarding chronic pain issues: You will need to see a pain specialist or have your PCP build a plan to slowly wean off narcotic medications, and replace with substitutes I have prescribed valium for muscle spasms - if this helps your pain, refer to your primary care physician on obtaining a less intense substitute for a muscle relaxer such as cyclobenzaprine or methocarbamol Reach out to your specialist who diagnosed you with metabolic myopathy regarding appropriate follow up care Regarding dilated biliary duct, diarrhea: You will need to follow up with your GI physician, and send his office records from this hospitalization, which you can obtain by calling the Medical Records department Your GI Physician can determine whether an ERCP is warranted and in what time frame it would or would not be necessary Discharge Disposition: HOME WITH HOME HEALTH SERVICES
== END 2021-07-05 14:40 | disposition home health service (06) ==
LOC: EC 11:19 → SUPCPDRO 11:19 → 6NMEDSUR 16:34
PROVIDERS: ADMIT Internal Medicine; ATTEND Internal Medicine
DX: R10.816 Epigastric abdominal tenderness (principal); R10.11 Right upper quadrant pain; R10.32 Left lower quadrant pain; R10.31 Right lower quadrant pain; K85.90 Acute pancreatitis without necrosis or infection, unspecified; K83.9 Disease of biliary tract, unspecified; K51.90 Ulcerative colitis, unspecified, without complications; E11.9 Type 2 diabetes mellitus without complications; I10 Essential (primary) hypertension; F11.20 Opioid dependence, uncomplicated; E24.9 Cushing's syndrome, unspecified; G89.4 Chronic pain syndrome; K57.80 Diverticulitis of intestine, part unspecified, with perforation and abscess without bleeding; K21.9 Gastro-esophageal reflux disease without esophagitis; N28.9 Disorder of kidney and ureter, unspecified; E83.52 Hypercalcemia; E87.2 Acidosis; E87.6 Hypokalemia; G71.00 Muscular dystrophy, unspecified; E06.3 Autoimmune thyroiditis; M54.6 Pain in thoracic spine; F41.9 Anxiety disorder, unspecified; K57.90 Diverticulosis of intestine, part unspecified, without perforation or abscess without bleeding; Z20.822 Contact with and (suspected) exposure to COVID-19; Z86.19 Personal history of other infectious and parasitic diseases; Z86.018 Personal history of other benign neoplasm; Z87.891 Personal history of nicotine dependence; Z90.49 Acquired absence of other specified parts of digestive tract; Z79.52 Long term (current) use of systemic steroids; Z79.899 Other long term (current) drug therapy; Z79.4 Long term (current) use of insulin; Z79.891 Long term (current) use of opiate analgesic; Z79.1 Long term (current) use of non-steroidal anti-inflammatories (NSAID); Z79.890 Hormone replacement therapy; Z71.89 Other specified counseling; Z71.9 Counseling, unspecified; Z71.51 Drug abuse counseling and surveillance of drug abuser; Z88.5 Allergy status to narcotic agent; Z88.2 Allergy status to sulfonamides; Z88.0 Allergy status to penicillin; Z88.1 Allergy status to other antibiotic agents
CPT/HCPCS: 96376 ×4; 96361 ×3; 96375 ×2; 96374; 99285; 36415; 93005; 97530; 97162; 85379; 80053 ×2; 85652; 82150; 83605; 83690 ×2; 83735; 84484; 85025 ×2; 85610; 85730; 86140; 81001; 87635; 71046; 71275; 74177; G0378 ×3; S0139 ×2; J2270 ×3; J2405 ×3; S0108 ×3; J7512 ×2; C9113 ×2; Q9967

== ENCOUNTER → 2021-09-19 | Outpatient (CLI) | payer MEDICARE | END | disposition home or self-care (01) | LOC: LABWHC1 11:34 | PROVIDERS: ATTEND Internal Medicine Hospice and Palliative Medicine | DX: K51.90 Ulcerative colitis, unspecified, without complications (principal); E83.52 Hypercalcemia | CPT/HCPCS: 36415; 83516; 83970 ==

== ENCOUNTER → 2021-09-24 | Outpatient (CLI) | payer MEDICARE ==
[2021-09-24 18:04] LABS: ALT 84 U/L (10-49); AST 55 U/L (14-35); African American GFR (CKD) 130.1 (60.0-200.0); Albumin/Globulin Ratio 1.71 (1.60-3.17); Alkaline Phosphatase 68 U/L (41-126); Amylase 51 U/L (23-121); BUN/Creat Ratio 14.64 Ratio (12.00-20.00); C Reactive Protein <0.30 mg/dL (0.00-0.80); Calcium 10.1 mg/dL (8.7-10.3); Carbon Dioxide 23.7 mmol/L (20.0-27.5); Chloride 102 mmol/L (96-109); Globulin 2.4 g/dL (1.6-3.3); Glucose 230 mg/dL (70-110); Lipase 65 U/L (14-60); Non-African American GFR(CKD) 112.3 (60.0-200.0); Potassium 4.4 mmol/L (3.5-5.5); Sodium 138 mmol/L (135-145); Total Protein 6.4 g/dL (6.2-8.2)
[2021-09-24 18:12] LABS: Basophils # (A) 0.03 X 10*3/uL (0.00-0.10); Eosinophils # (A) 0.09 X 10*3/uL (0.04-0.35); Eosinophils % (A) 3.1 %; HCT 41.5 % (39.6-50.0); HGB 13.1 g/dL (13.0-17.0); Immature Grans, Automated 0.3 %; Lymphocytes # (A) 0.66 X 10*3/uL (0.90-5.00); Lymphocytes % (A) 22.5 %; MCHC 31.6 g/dL (32.0-37.0); MCV 101.2 fL (80.0-97.0); Mean Platelet Volume 10.1 fL (9.5-12.2); Monocytes # (A) 0.29 X 10*3/uL (0.20-1.00); Monocytes % (A) 9.9 %; NRBC Per 100 WBC 0 /100 WBCS (0.0-0.0); Neutrophils # (A) 1.85 X 10*3/uL (1.80-7.70); Neutrophils % (A) 63.2 %; Platelet Count 472 X 10*3/uL (140-440); RDW 16.3 % (11.5-14.5); WBC 2.93 X 10*3/uL (4.50-10.00)
== END | disposition home or self-care (01) ==
LOC: LABWHC1 11:58
PROVIDERS: ATTEND Internal Medicine
DX: R11.2 Nausea with vomiting, unspecified (principal); R63.4 Abnormal weight loss
CPT/HCPCS: 36415; 80053; 82150; 83690; 85025; 86140

== ENCOUNTER → 2022-03-19 | Outpatient (CLI) | payer MEDICARE ==
--- NOTE | 2022-03-19 12:30 | XR ---
EXAMINATION TYPE: XR chest 2V DATE OF EXAM: 03/19/2022 11:48 AM COMPARISON: Chest radiographs from 07/03/2021, CTA chest 07/03/2021. TECHNIQUE: XR chest 2V Frontal and lateral views of the chest. CLINICAL INDICATION:Male, 57 years old with history of J189; FINDINGS: Lungs/Pleura: There is no evidence of pleural effusion, focal consolidation, or pneumothorax. Simila r posterior basilar opacity favoring atelectasis and/or scarring. Pulmonary vascularity: Unremarkable. Heart/mediastinum: Cardiomediastinal silhouette is unremarkable. Musculoskeletal: No acute osseous pathology. IMPRESSION: No acute cardiopulmonary disease/process.
== END | disposition home or self-care (01) ==
LOC: RADXRMAIN 11:31
DX: J18.9 Pneumonia, unspecified organism (principal)
CPT/HCPCS: 71046

== ENCOUNTER → 2022-11-27 | Outpatient (CLI) | payer MEDICARE ==
[2022-11-28 02:19] LABS: Basophils # (A) 0.07 X 10*3/uL (0.00-0.10); Basophils % (A) 0.9 %; Eosinophils # (A) 0.04 X 10*3/uL (0.04-0.35); Eosinophils % (A) 0.5 %; HCT 47.5 % (39.6-50.0); HGB 15.2 g/dL (13.0-17.0); Immature Grans, Automated 1.3 %; Lymphocytes % (A) 22.8 %; MCH 32.3 pg (27.0-32.0); MCV 101.1 fL (80.0-97.0); Mean Platelet Volume 9.7 fL (9.5-12.2); Monocytes # (A) 0.73 X 10*3/uL (0.20-1.00); Monocytes % (A) 9.2 %; NRBC Per 100 WBC 0 /100 WBCS (0.0-0.0); Neutrophils # (A) 5.17 X 10*3/uL (1.80-7.70); Neutrophils % (A) 65.3 %; Platelet Count 343 X 10*3/uL (140-440); WBC 7.91 X 10*3/uL (4.50-10.00)
[2022-11-28 03:22] LABS: ALT 30 U/L (10-49); AST 18 U/L (14-35); African American GFR (CKD) 86.5 (60.0-200.0); Albumin 4.4 g/dL (3.8-4.9); Albumin/Globulin Ratio 1.47 (1.60-3.17); Alkaline Phosphatase 74 U/L (41-126); BUN/Creat Ratio 19.82 Ratio (12.00-20.00); Blood Urea Nitrogen 21.8 mg/dL (9.0-27.0); C Reactive Protein <0.30 mg/dL (0.00-0.80); Calcium 10.2 mg/dL (8.7-10.3); Carbon Dioxide 24.8 mmol/L (20.0-27.5); Chloride 100 mmol/L (96-109); Glucose 188 mg/dL (70-110); Non-African American GFR(CKD) 74.6 (60.0-200.0); Potassium 4.9 mmol/L (3.5-5.5); Sodium 142 mmol/L (135-145); Total Protein 7.4 g/dL (6.2-8.2)
[2022-11-28 05:10] LABS: Erythrocyte Sedimentation Rate 18 mm/Hr (0-20)
== END | disposition home or self-care (01) ==
LOC: LABWHC1 13:28
PROVIDERS: ATTEND Internal Medicine Hospice and Palliative Medicine
DX: E24.2 Drug-induced Cushing's syndrome (principal); M25.849 Other specified joint disorders, unspecified hand
CPT/HCPCS: 36415; 80053; 84443; 85025; 85652; 86140

== ENCOUNTER 2023-02-27 15:37 | Inpatient (IN) | payer MEDICARE ==
[2023-02-27] MEDS ORDERED: MORPHINE SULFATE 4 MG/ML SYRINGE IVP STA ×2 (15:57→18:33)
[2023-02-27] MEDS ORDERED: SODIUM CHLORIDE 0.9% 1,000 ML IV STA ×2 (15:57→20:30)
[2023-02-27] MEDS ORDERED: PANTOPRAZOLE 40 MG/10 ML VIAL IVP STA (15:57)
--- NOTE | 2023-02-27 16:24 | ED ---
General Adult HPI - General Chief complaint: Abdominal Pain Stated complaint: ABD PAIN Time Seen by Provider: 02/27/23 15:48 Source: patient, RN notes reviewed, old records reviewed Mode of arrival: ambulatory Limitations: no limitations - History of Present Illness Initial comments: Patient is a 58-year-old male with past medical history remarkable for diabetes, hypertension, suspected UC, arthritis, diverticulitis with resulting partial colectomy with ostomy and ostomy reversal, appendectomy, cystectomy who presents emergency Department complaining of lower abdominal pain for the last few days, worse today. Patient's last bowel movement was 4 days ago. He has not been passing gas. He is complaining of bilateral lower quadrant abdominal pain, generalized pain all studies well. Feels distended. Feels intermittently nauseous. Denies any chest pain or shortness of breath. Denies fevers or chills. Denies any urinary complaints. Believes he may be constipated. Presents for further evaluation at this time. Abdominal surgeries were many years ago. - Related Data Home Medications Medication Instructions Recorded Confirmed Gabapentin 300 mg PO BID PRN 07/03/21 02/27/23 Gabapentin 300 mg PO HS 07/03/21 02/27/23 Levothyroxine Sodium [Synthroid] 75 mcg PO HS 07/03/21 02/27/23 Mercaptopurine [Purinethol] 50 mg PO BID 07/03/21 02/27/23 predniSONE 3 mg PO DAILY 07/03/21 02/27/23 Chlorthalidone [Hygroton] 25 mg PO DAILY 02/27/23 02/27/23 Famotidine [Pepcid] 20 mg PO BID 02/27/23 02/27/23 Insulin Aspart [NovoLOG Flexpen] See Protocol SQ TID-W/MEALS PRN 02/27/23 02/27/23 Insulin Glargine,Hum.rec.anlog 36 units SQ BID 02/27/23 02/27/23 [Lantus Solostar Pen] Linaclotide [Linzess] 145 mcg PO DAILY 02/27/23 02/27/23 Losartan Potassium [Cozaar] 100 mg PO DAILY 02/27/23 02/27/23 Omeprazole 40 mg PO BID 02/27/23 02/27/23 oxyCODONE HCL [oxyCODONE HCL (IR)] 10 mg PO Q4H PRN 02/27/23 02/27/23 polyethylene glycoL 3350 [Miralax] 17 gm PO HS 02/27/23 02/27/23 predniSONE 2 mg PO HS 02/27/23 02/27/23 Allergies Allergy/AdvReac Type Severity Reaction Status Date / Time Sulfa (Sulfonamide Allergy Rash/Hives Verified 02/27/23 16:52 Antibiotics) amoxicillin AdvReac Diarrhea/C Verified 02/27/23 16:52 Diff hydromorphone [From Dilaudid] AdvReac Rash/Hives Verified 02/27/23 16:52 Macrolide Antibiotics AdvReac Diarrhea/C Verified 02/27/23 16:52 Diff Oxazolidinone Antibacterials AdvReac Diarrhea/C Verified 02/27/23 16:52 Diff Penicillins AdvReac Diarrhea/C Verified 02/27/23 16:52 Diff Review of Systems ROS Statement: Those systems with pertinent positive or pertinent negative responses have been documented in the HPI. Review of Systems: CONST: Denies fever EYES: Denies blurry vision ENT: Denies nasal congestion C/V: Denies Chest pain RESP: Denies shortness of breath GI: Endorses abdominal pain : Denies dysuria SKIN: Denies rash. MSK: Denies joint pain. NEURO: Denies headache ROS Other: All systems not noted in ROS Statement are negative. Past Medical History Past Medical History: Diabetes Mellitus, GERD/Reflux, Hypertension, Musculoskeletal Disorder, Neurologic Disorder, Renal Disease, Thyroid Disorder Additional Past Medical History / Comment(s): Cushings syndrome, uncontrolled diabetes, hasimoto's, Metabolic Myopathy, Shingles (May 2021), partially functioning kidneys, gastroperesis History of Any Multi-Drug Resistant Organisms: None Reported Past Surgical History: Appendectomy, Bowel Resection, Cholecystectomy Additional Past Surgical History / Comment(s): lipoma removals, sinus surgery x 2, oral surgery Past Psychological History: Anxiety Smoking Status: Never smoker Past Alcohol Use History: None Reported Past Drug Use History: None Reported General Exam - General Exam Comments Initial Comments: General: Appears in mild to moderate distress secondary to abdominal pain. HEAD: Normal with no signs of head trauma. EYES: PERRLA, EOMI, conjunctiva normal, no discharge. ENT: Hearing grossly intact, normal oropharynx. RESPIRATORY: Clear breath sounds bilaterally. No wheezes, rales, or rhonchi. C/V: Regular rate and rhythm. S1 and S2 auscultated, no edema, peripheral pulses 2+ and intact throughout ABD: Abdomen is mildly distended primarily on the left side and lower quadrants. Tenderness in the bilateral lower quadrants. No guarding. No rebound tenderness. No peritoneal signs. EXT: Normal range of motion, no obvious deformity SKIN: Old abdominal scars from prior surgeries. NEURO: Alert and oriented 4. Limitations: no limitations Course Vital Signs 02/27/23 02/27/23 02/27/23 15:39 17:34 18:37 Temperature 97 F L 97.2 F L Pulse Rate 111 H 57 L 104 H Respiratory 16 18 18 Rate Blood Pressure 142/91 143/87 154/100 O2 Sat by Pulse 99 98 98 Oximetry 02/27/23 22:32 Temperature 97.1 F L Pulse Rate 109 H Respiratory 18 Rate Blood Pressure 126/87 O2 Sat by Pulse 96 Oximetry Medical Decision Making - Medical Decision Making Was pt. sent in by a medical professional or institution (, PA, BRAZING FURNACE OPERATOR, urgent care, hospital, or halfway...) When possible be specific @ -No Did you speak to anyone other than the patient for history (EMS, parent, family, police, friend...)? What history was obtained from this source @ -No Did you review nursing and triage notes (agree or disagree)? Why? @ -I reviewed and agree with nursing and triage notes Were old charts reviewed (outside hosp., previous admission, EMS record, old EKG, old radiological studies, urgent care reports/EKG's, halfway records)? Report findings @ -No old charts were reviewed Differential Diagnosis (chest pain, altered mental status, abdominal pain women, abdominal pain men, vaginal bleeding, weakness, fever, dyspnea, syncope, headache, dizziness, GI bleed, back pain, seizure, CVA, palpatations, mental health, musculoskeletal)? @ -Differential Abdominal Pain Men: Appendicitis, cholecystitis, diverticulosis, ischemic bowel, pancreatitis, hepatitis, UTI, gastroenteritis, AAA, incarcerated hernia, bowel obstruction, constipation, inflammatory bowel, hepatitis, peptic ulcer disease, splenic inf arction, perforated viscus, testicular torsion, this is not meant to be an all- inclusive list EKG interpreted by me (3pts min.). @ -None done X-rays interpreted by me (1pt min.). @ -Patient's chest x-ray reveals no obvious acute cardio pulmonary process. CT interpreted by me (1pt min.). @ -CT abdomen pelvis reveals an acute small bowel obstruction. U/S interpreted by me (1pt. min.). @ -None done What testing was considered but not performed or refused? (CT, X-rays, U/S, labs)? Why? @ -None What meds were considered but not given or refused? Why? @ -None Did you discuss the management of the patient with other professionals (professionals i.e. , PA, BRAZING FURNACE OPERATOR, lab, RT, psych nurse, perinatal social worker, industrial cleaner, teacher, founder chairman and chief creative officer, case resolution specialist)? Give summary @ -No Was smoking cessation discussed for >3mins.? @ -No Was critical care preformed (if so, how long)? @ -Yes, 36 minutes. Were there social determinants of health that impacted care today? How? (Homelessness, low income, unemployed, alcoholism, drug addiction, transportation, low edu. Level, literacy, decrease access to med. care, [place] [facility], rehab)? @ -No Was there de-escalation of care discussed even if they declined (Discuss DNR or withdrawal of care, Hospice)? DNR status @ -No What co-morbidities impacted this encounter? (DM, HTN, Smoking, COPD, CAD, Cancer, CVA, ARF, Chemo, Hep., AIDS, mental health diagnosis, sleep apnea, morbid obesity)? @ -Multiple prior abdominal surgeries. Was patient admitted / discharged? Hospital course, mention meds given and route, prescriptions, significant lab abnormalities, going to OR and other pertinent info. @ -Based on the patient's presentation and physical exam, and concern for an acute intra-abdominal process for the patient's current symptoms. All instruction is high on the differential. We will obtain abdominal laboratory studies, as well as a CT abdomen and pelvis and a 1 view upright chest x-ray to evaluate for intra-abdominal free air. Patient will be given a 1 L fluid bolus, as well as IV Protonix, Zofran, morphine for symptomatic treatment. Vital signs within acceptable limits except for mild tachycardia likely secondary to pain. He was in agreement this plan. Patient's imaging remarkable for a small bowel obstruction. Patient's labs showed no leukocytosis. Potassium of 3.2. Lactic acid initially 3.8 but improves with fluids 1.4. Remainder the labs within acceptable limits. I discussed results with the patient. I recommended admission at this time. He was in agreement this plan. I spoke with surgeon on-call, Dr. Delgado who accepted the consult and requested NG tube be placed. Was in agreement with withholding antibiotics as there is no white blood cell count. Patient will be made nothing by mouth. I spoke with the admitting team, Dr. Blankenship who accepted the admission. Patient made nothing by mouth. Successful placement of the NG tube. Undiagnosed new problem with uncertain prognosis? @ -No Drug Therapy requiring intensive monitoring for toxicity (Heparin, Nitro, Insulin, Cardizem)? @ -No Were any procedures done? @ -No Diagnosis/symptom? @ -Small bowel instruction, dehydration Acute, or Chronic, or Acute on Chronic? @ -Acute Uncomplicated (without systemic symptoms) or Complicated (systemic symptoms)? @ -Complicated Side effects of treatment? @ -none Exacerbation, Progression, or Severe Exacerbation] @ -no Poses a threat to life or bodily function? @ -Yes - Lab Data Result diagrams: 02/27/23 17:17 02/27/23 18:55 Lab Results 02/27/23 02/27/23 02/27/23 Range/Units 15:56 17:00 17:17 WBC 8.0 (3.8-10.6) k/uL RBC 5.35 (4.30-5.90) m/uL Hgb 17.3 (13.0-17.5) gm/dL Hct 50.0 (39.0-53.0) % MCV 93.5 (80.0-100.0) fL MCH 32.3 (25.0-35.0) pg MCHC 34.6 (31.0-37.0) g/dL RDW 13.3 (11.5-15.5) % Plt Count 387 (150-450) k/uL MPV 7.5 Neutrophils % 70 % Lymphocytes % 18 % Monocytes % 7 % Eosinophils % 1 % Basophils % 1 % Neutrophils # 5.6 (1.3-7.7) k/uL Lymphocytes # 1.5 (1.0-4.8) k/uL Monocytes # 0.6 (0-1.0) k/uL Eosinophils # 0.1 (0-0.7) k/uL Basophils # 0.0 (0-0.2) k/uL PT (9.0-12.0) sec INR (<1.2) APTT (22.0-30.0) sec Sodium (137-145) mmol/L Potassium (3.5-5.1) mmol/L Chloride (98-107) mmol/L Carbon Dioxide (22-30) mmol/L Anion Gap mmol/L BUN (9-20) mg/dL Creatinine (0.66-1.25) mg/dL Est GFR (CKD-EPI)AfAm (>60 ml/min/1.73 sqM) Est GFR (CKD-EPI)NonAf (>60 ml/min/1.73 sqM) Glucose (74-99) mg/dL POC Glucose (mg/dL) (70-110) mg/dL POC Glu Engineering Technical Analyst ID Lactic Ac Sepsis Rflx Plasma Lactic Acid Paras (0.7-2.0) mmol/L Calcium (8.4-10.2) mg/dL Total Bilirubin (0.2-1.3) mg/dL AST (17-59) U/L ALT (4-49) U/L Alkaline Phosphatase (38-126) U/L Total Protein (6.3-8.2) g/dL Albumin (3.5-5.0) g/dL Amylase (30-110) U/L Lipase (23-300) U/L Urine Color Light Yellow Urine Appearance Clear (Clear) Urine pH 8.5 H (5.0-8.0) Ur Specific [place] 1.035 (1.001-1.035) Urine Protein Negative (Negative) Urine Glucose (UA) 4+ H (Negative) Urine Ketones 1+ H (Negative) Urine Blood Negative (Negative) Urine Nitrite Negative (Negative) Urine Bilirubin Negative (Negative) Urine Urobilinogen <2.0 (<2.0) mg/dL Ur Leukocyte Esterase Negative (Negative) Blood Type Blood Type Confirm B Positive Blood Type Recheck Bld Type Recheck Status Antibody Screen Spec Expiration Date 02/27/23 02/27/23 02/27/23 Range/Units 17:17 17:17 17:42 WBC (3.8-10.6) k/uL RBC (4.30-5.90) m/uL Hgb (13.0-17.5) gm/dL Hct (39.0-53.0) % MCV (80.0-100.0) fL MCH (25.0-35.0) pg MCHC (31.0-37.0) g/dL RDW (11.5-15.5) % Plt Count (150-450) k/uL MPV Neutrophils % % Lymphocytes % % Monocytes % % Eosinophils % % Basophils % % Neutrophils # (1.3-7.7) k/uL Lymphocytes # (1.0-4.8) k/uL Monocytes # (0-1.0) k/uL Eosinophils # (0-0.7) k/uL Basophils # (0-0.2) k/uL PT (9.0-12.0) sec INR (<1.2) APTT (22.0-30.0) sec Sodium 136 L (137-145) mmol/L Potassium 5.6 H (3.5-5.1) mmol/L Chloride 101 (98-107) mmol/L Carbon Dioxide 22 (22-30) mmol/L Anion Gap 13 mmol/L BUN 16 (9-20) mg/dL Creatinine 0.80 (0.66-1.25) mg/dL Est GFR (CKD-EPI)AfAm >90 (>60 ml/min/1.73 sqM) Est GFR (CKD-EPI)NonAf >90 (>60 ml/min/1.73 sqM) Glucose 260 H (74-99) mg/dL POC Glucose (mg/dL) (70-110) mg/dL POC Glu Engineering Technical Analyst ID Lactic Ac Sepsis Rflx Plasma Lactic Acid Paras 3.8 H* (0.7-2.0) mmol/L Calcium 10.4 H (8.4-10.2) mg/dL Total Bilirubin 1.7 H (0.2-1.3) mg/dL AST 57 (17-59) U/L ALT 35 (4-49) U/L Alkaline Phosphatase 91 (38-126) U/L Total Protein 9.0 H (6.3-8.2) g/dL Albumin 5.0 (3.5-5.0) g/dL Amylase 62 (30-110) U/L Lipase 142 (23-300) U/L Urine Color Urine Appearance (Clear) Urine pH (5.0-8.0) Ur Specific [place] (1.001-1.035) Urine Protein (Negative) Urine Glucose (UA) (Negative) Urine Ketones (Negative) Urine Blood (Negative) Urine Nitrite (Negative) Urine Bilirubin (Negative) Urine Urobilinogen (<2.0) mg/dL Ur Leukocyte Esterase (Negative) Blood Type B Positive Blood Type Confirm Blood Type Recheck No Previous Record Bld Type Recheck Status CABO Indicated Antibody Screen NEGATIVE Spec Expiration Date 03/02/2023 - 234102/27/23 02/27/23 02/27/23 Range/Units 18:36 18:39 18:55 WBC (3.8-10.6) k/uL RBC (4.30-5.90) m/uL Hgb (13.0-17.5) gm/dL Hct (39.0-53.0) % MCV (80.0-100.0) fL MCH (25.0-35.0) pg MCHC (31.0-37.0) g/dL RDW (11.5-15.5) % Plt Count (150-450) k/uL MPV Neutrophils % % Lymphocytes % % Monocytes % % Eosinophils % % Basophils % % Neutrophils # (1.3-7.7) k/uL Lymphocytes # (1.0-4.8) k/uL Monocytes # (0-1.0) k/uL Eosinophils # (0-0.7) k/uL Basophils # (0-0.2) k/uL PT 10.0 (9.0-12.0) sec INR 0.9 (<1.2) APTT 23.2 (22.0-30.0) sec Sodium (137-145) mmol/L Potassium 3.2 L (3.5-5.1) mmol/L Chloride (98-107) mmol/L Carbon Dioxide (22-30) mmol/L Anion Gap mmol/L BUN (9-20) mg/dL Creatinine (0.66-1.25) mg/dL Est GFR (CKD-EPI)AfAm (>60 ml/min/1.73 sqM) Est GFR (CKD-EPI)NonAf (>60 ml/min/1.73 sqM) Glucose (74-99) mg/dL POC Glucose (mg/dL) (70-110) mg/dL POC Glu Engineering Technical Analyst ID Lactic Ac Sepsis Rflx Y Plasma Lactic Acid Paras (0.7-2.0) mmol/L Calcium (8.4-10.2) mg/dL Total Bilirubin (0.2-1.3) mg/dL AST (17-59) U/L ALT (4-49) U/L Alkaline Phosphatase (38-126) U/L Total Protein (6.3-8.2) g/dL Albumin (3.5-5.0) g/dL Amylase (30-110) U/L Lipase (23-300) U/L Urine Color Urine Appearance (Clear) Urine pH (5.0-8.0) Ur Specific [place] (1.001-1.035) Urine Protein (Negative) Urine Glucose (UA) (Negative) Urine Ketones (Negative) Urine Blood (Negative) Urine Nitrite (Negative) Urine Bilirubin (Negative) Urine Urobilinogen (<2.0) mg/dL Ur Leukocyte Esterase (Negative) Blood Type Blood Type Confirm Blood Type Recheck Bld Type Recheck Status Antibody Screen Spec Expiration Date 02/27/23 02/27/23 Range/Units 19:44 20:39 WBC (3.8-10.6) k/uL RBC (4.30-5.90) m/uL Hgb (13.0-17.5) gm/dL Hct (39.0-53.0) % MCV (80.0-100.0) fL MCH (25.0-35.0) pg MCHC (31.0-37.0) g/dL RDW (11.5-15.5) % Plt Count (150-450) k/uL MPV Neutrophils % % Lymphocytes % % Monocytes % % Eosinophils % % Basophils % % Neutrophils # (1.3-7.7) k/uL Lymphocytes # (1.0-4.8) k/uL Monocytes # (0-1.0) k/uL Eosinophils # (0-0.7) k/uL Basophils # (0-0.2) k/uL PT (9.0-12.0) sec INR (<1.2) APTT (22.0-30.0) sec Sodium (137-145) mmol/L Potassium (3.5-5.1) mmol/L Chloride (98-107) mmol/L Carbon Dioxide (22-30) mmol/L Anion Gap mmol/L BUN (9-20) mg/dL Creatinine (0.66-1.25) mg/dL Est GFR (CKD-EPI)AfAm (>60 ml/min/1.73 sqM) Est GFR (CKD-EPI)NonAf (>60 ml/min/1.73 sqM) Glucose (74-99) mg/dL POC Glucose (mg/dL) 197 H (70-110) mg/dL POC Glu Engineering Technical Analyst ID Saranya Rodrigez Ac Sepsis Rflx Plasma Lactic Acid Paras 1.4 (0.7-2.0) mmol/L Calcium (8.4-10.2) mg/dL Total Bilirubin (0.2-1.3) mg/dL AST (17-59) U/L ALT (4-49) U/L Alkaline Phosphatase (38-126) U/L Total Protein (6.3-8.2) g/dL Albumin (3.5-5.0) g/dL Amylase (30-110) U/L Lipase (23-300) U/L Urine Color Urine Appearance (Clear) Urine pH (5.0-8.0) Ur Specific [place] (1.001-1.035) Urine Protein (Negative) Urine Glucose (UA) (Negative) Urine Ketones (Negative) Urine Blood (Negative) Urine Nitrite (Negative) Urine Bilirubin (Negative) Urine Urobilinogen (<2.0) mg/dL Ur Leukocyte Esterase (Negative) Blood Type Blood Type Confirm Blood Type Recheck Bld Type Recheck Status Antibody Screen Spec Expiration Date Critical Care Time Critical Care Time: Yes Total Critical Care Time: 36 Disposition Clinical Impression: Small bowel obstruction, Dehydration Disposition: ADMITTED IP TO THIS [facility] Condition: Serious Time of Disposition: 20:25
--- NOTE | 2023-02-27 16:25 | XR ---
EXAMINATION TYPE: XR chest 1V portable DATE OF EXAM: 02/27/2023 4:13 PM COMPARISON: Chest radiographs from 03/19/2022 TECHNIQUE: XR chest 1V portable Portable AP radiograph of the chest. CLINICAL INDICATION:Male, 58 years old with history of abdominal pain; FINDINGS: Lungs/Pleura: There is no evidence of pleural effusion, focal consolidation, or pneumothorax. Bibasi lar linear scarring and/or atelectasis. Pulmonary vascularity: Unremarkable. Heart/mediastinum: Cardiomediastinal silhouette is unremarkable. Musculoskeletal: No acute osseous pathology. IMPRESSION: Chronic changes without acute pulmonary process. No significant change from prior.
[2023-02-27] MEDS: ONDANSETRON 4 MG/2 ML VIAL IVP STA (16:52)
[2023-02-27 17:30] LABS: Basophils % (A) 1 %; Eosinophils # (A) 0.1 k/uL (0-0.7); Eosinophils % (A) 1 %; HGB 17.3 gm/dL (13.0-17.5); Lymphocytes # (A) 1.5 k/uL (1.0-4.8); Lymphocytes % (A) 18 %; MCH 32.3 pg (25.0-35.0); MCHC 34.6 g/dL (31.0-37.0); MCV 93.5 fL (80.0-100.0); Mean Platelet Volume 7.5; Monocytes # (A) 0.6 k/uL (0-1.0); Monocytes % (A) 7 %; Neutrophils # (A) 5.6 k/uL (1.3-7.7); Neutrophils % (A) 70 %; Platelet Count 387 k/uL (150-450); RBC 5.35 m/uL (4.30-5.90); RDW 13.3 % (11.5-15.5)
[2023-02-27] MEDS ORDERED: LORazepam 2 MG/ML INJ IV STA ×2 (17:44→20:30)
[2023-02-27 17:58] LABS: ALT 35 U/L (4-49); AST 57 U/L (17-59); African American GFR (CKD) >90 (>60 ml/min/1.73 sqM); Alkaline Phosphatase 91 U/L (38-126); Amylase 62 U/L (30-110); Anion Gap 13 mmol/L; Blood Urea Nitrogen 16 mg/dL (9-20); Calcium 10.4 mg/dL (8.4-10.2); Carbon Dioxide 22 mmol/L (22-30); Chloride 101 mmol/L (98-107); Glucose 260 mg/dL (74-99); Lipase 142 U/L (23-300); Non-African American GFR(CKD) >90 (>60 ml/min/1.73 sqM); Sodium 136 mmol/L (137-145); Total Bilirubin 1.7 mg/dL (0.2-1.3)
[2023-02-27] MEDS ORDERED: METOCLOPRAMIDE 5 MG/ML 2 ML VIAL IVP STA (18:33)
[2023-02-27 18:34] LABS: Potassium 5.6 mmol/L (3.5-5.1)
[2023-02-27 18:53] LABS: INR 0.9 (<1.2); Partial Thromboplastin Time 23.2 sec (22.0-30.0)
--- NOTE | 2023-02-27 19:37 | CT ---
EXAMINATION TYPE: CT abdomen pelvis w con CT DLP: 1924.2 mGycm, Automated exposure control for dose reduction was used. DATE OF EXAM: 02/27/2023 7:27 PM COMPARISON: CT abdomen pelvis most recent from 07/03/2021 . CLINICAL INDICATION:Male, 58 years old with history of BL lower quadrant abd pain with constipation; lower abd pain. constipation. TECHNIQUE: Standard CT of the abdomen and pelvis following the administration of 100 cc of Isovue 3 00 IV contrast material and oral contrast. Coronal and sagittal reformats were performed. FINDINGS: LOWER CHEST: Linear scarring and/or atelectasis within both lung bases. Coronary arterial calcificati ons. ABDOMEN LIVER: Hepatic dome stable cyst GALLBLADDER AND BILE DUCTS: Gallbladder is surgically absent with mild intrahepatic and extra hepatic biliary dilatation likely physiologic and a postcholecystectomy change. No evidence of choledocholit hiasis. PANCREAS: Unremarkable. SPLEEN: Unremarkable. ADRENAL GLANDS: Unremarkable. KIDNEYS AND URETERS: No evidence of hydronephrosis . Nonobstructive left renal calculi measuring up t o 6 mm. Stable atrophy and cortical thinning of the left kidney. PELVIS BLADDER: Unremarkable REPRODUCTIVE: Unremarkable. ABDOMEN & PELVIS STOMACH AND BOWEL: Small hiatal hernia, duodenum is unremarkable. Surgical changes of the sigmoid col on redemonstrated. Dilated fluid-filled small bowel with small bowel feces sign identified measuring up to 4.5 cm. Transition point is in the central anterior lower abdomen (series 202, image 53) Mild m esenteric stranding identified. Colon is underdistended. PERITONEUM: No evidence of pneumoperitoneum or free fluid. Surgical clips identified in the left mid to lower abdomen posteriorly again. VASCULATURE: Mild atherosclerotic calcifications are present throughout the abdominal aorta and its b ranches. No evidence of aortic aneurysm. MUSCULOSKELETAL: No acute osseous abnormalities. Grade 1 anterolisthesis of L4 on L5 without evidence of pars defect. Mild multilevel degenerative disc disease. LYMPH NODES: No gross evidence for lymphadenopathy. SOFT TISSUE/ABDOMINAL WALL: Unremarkable IMPRESSION: 1. High-grade small bowel obstruction with transition point in the central anterior lower abdomen li little from adhesion. 2. Similar mild intra and extrahepatic biliary ductal dilatation status post cholecystectomy. 3. Atrophy of the left kidney redemonstrated with nonobstructive left renal calculus.
[2023-02-27 19:46] LABS: Glucose,Whole Blood 197 mg/dL (70-110)
[2023-02-27] MEDS ORDERED: NALOXONE 0.4 MG/ML 1 ML VIAL IV PRN (20:52)
[2023-02-27 21:23] LABS: Appearance,Urine Clear (Clear); Bilirubin,Urine Negative (Negative); Blood,Urine Negative (Negative); Color,Urine Light Yellow; Glucose,Urine (UA) 4+ (Negative); Ketones,Urine 1+ (Negative); Leukocyte Esterase,Urine Negative (Negative); Nitrite,Urine Negative (Negative); PH, Urine 8.5 (5.0-8.0); Protein,Urine Negative (Negative); Specific Gravity,Urine 1.035 (1.001-1.035); Urobilinogen,Urine <2.0 mg/dL (<2.0)
--- NOTE | 2023-02-27 21:46 | XR ---
EXAMINATION TYPE: XR chest 1V portable DATE OF EXAM: 02/27/2023 9:30 PM COMPARISON: Chest radiographs from 02/27/2023 TECHNIQUE: XR chest 1V portable Portable AP radiograph of the chest. CLINICAL INDICATION:Male, 58 years old with history of ng placement; FINDINGS: Lungs/Pleura: There is no evidence of pleural effusion, focal consolidation, or pneumothorax. Bibasi lar linear scarring and/or atelectasis redemonstrated. Pulmonary vascularity: Unremarkable. Heart/mediastinum: Cardiomediastinal silhouette is unremarkable. Musculoskeletal: No acute osseous pathology. Other findings: None Lines/Tubes: Interval placement of NG tube with distal tip in the midesophagus. IMPRESSION: Interval placement of NG tube with distal tip in the mid esophagus. Recommend advancement of at least 20 cm.
[2023-02-27] MEDS: MORPHINE SULFATE 4 MG/ML SYRINGE IV PRN (22:33)
[2023-02-27] MEDS: ONDANSETRON 4 MG/2 ML VIAL IVP PRN (22:36)
--- NOTE | 2023-02-27 23:12 | XR ---
EXAMINATION TYPE: XR chest 1V portable DATE OF EXAM: 02/27/2023 COMPARISON: NONE HISTORY: NG tube placement. TECHNIQUE: Single frontal view of the chest is obtained. FINDINGS: There is a linear band of opacity at the left lung base which is likely atelectasis. There is otherwise no focal air space opacity, pleural effusion, or pneumothorax seen. The cardiac silhou ette size is within normal limits. The osseous structures are intact. The NG tube tip appears to project just below the diaphragm and is likely within the proximal stomach IMPRESSION: Limited evaluation as the NG tube is not well seen, however felt to be in the proximal p ortion of the stomach in the upper abdomen.
[2023-02-28] MEDS: MORPHINE SULFATE 4 MG/ML SYRINGE IV PRN ×5 (01:54→22:56)
[2023-02-28] MEDS: ONDANSETRON 4 MG/2 ML VIAL IVP PRN ×3 (03:33→22:23)
[2023-02-28 05:32] LABS: Glucose,Whole Blood 161 mg/dL (70-110)
--- NOTE | 2023-02-28 05:43 | XR ---
EXAMINATION TYPE: XR chest 1V portable DATE OF EXAM: 02/28/2023 COMPARISON: 02/27/2023. HISTORY: NG tube placement. TECHNIQUE: Single frontal view of the chest is obtained. IMPRESSION: There is an NG tube with the tip not entirely included on the evaluation, however is at least within the stomach. The evaluation of the heart and lungs is otherwise unchanged.
[2023-02-28] MEDS ORDERED: PROCHLORPERAZINE INJ 10 MG/2 ML VIAL IVP STA (05:54)
[2023-02-28] MEDS ORDERED: KETOROLAC 15 MG/ML 1 ML VIAL IVP SCH (06:00)
[2023-02-28] MEDS: ACETAMINOPHEN IV (For NPO) 1,000 MG in EMPTY BAG 1 BAG IVPB SCH ×3 (06:02→17:57)
[2023-02-28 07:42] LABS: African American GFR (CKD) >90 (>60 ml/min/1.73 sqM); Anion Gap 12 mmol/L; Blood Urea Nitrogen 15 mg/dL (9-20); Calcium 9.4 mg/dL (8.4-10.2); Carbon Dioxide 23 mmol/L (22-30); Chloride 103 mmol/L (98-107); Glucose 152 mg/dL (74-99); Non-African American GFR(CKD) >90 (>60 ml/min/1.73 sqM); Potassium 3.6 mmol/L (3.5-5.1); Sodium 138 mmol/L (137-145)
[2023-02-28 07:44] LABS: Basophils % (A) 1 %; Eosinophils # (A) 0.1 k/uL (0-0.7); Eosinophils % (A) 1 %; HCT 47.1 % (39.0-53.0); HGB 15.9 gm/dL (13.0-17.5); Lymphocytes % (A) 14 %; MCH 32.4 pg (25.0-35.0); MCHC 33.7 g/dL (31.0-37.0); MCV 95.9 fL (80.0-100.0); Mean Platelet Volume 7.9; Monocytes # (A) 0.6 k/uL (0-1.0); Monocytes % (A) 8 %; Neutrophils # (A) 5.6 k/uL (1.3-7.7); Neutrophils % (A) 75 %; Platelet Count 300 k/uL (150-450); RBC 4.91 m/uL (4.30-5.90); RDW 13.7 % (11.5-15.5); WBC 7.5 k/uL (3.8-10.6)
[2023-02-28 07:49] LABS: Glucose,Whole Blood 152 mg/dL (70-110)
[2023-02-28] MEDS ORDERED: ONDANSETRON 4 MG/2 ML VIAL IVP STA (08:41)
[2023-02-28] MEDS: KETOROLAC 15 MG/ML 1 ML VIAL IVP PRN (08:52)
[2023-02-28] MEDS ORDERED: GABAPENTIN 300 MG CAP PO PRN (10:13)
[2023-02-28] MEDS ORDERED: DEXTROSE 50% SYRINGE 50 ML IVP PRN ×2 (10:15)
[2023-02-28 11:36] LABS: Glucose,Whole Blood 183 mg/dL (70-110)
[2023-02-28] MEDS: PROCHLORPERAZINE INJ 10 MG/2 ML VIAL IVP PRN (11:52)
[2023-02-28] MEDS: HYDROCORTISONE SUCCINATE 100 MG/2 ML VIAL IV SCH ×2 (13:01→22:10)
--- NOTE | 2023-02-28 13:50 | P.HPIM ---
History of Present Illness H&P Date: 02/28/23 History of present illness; 58-year-old gentleman with past medical history sign ificant for diabetes, hypertension, suspected UC, arthritis, diverticulitis with resulting partial colectomy with ostomy and ostomy reversal presented to the ER because of abdominal pain. Patient stated the abdominal pain started a few days ago, located in the bilateral lower quadrant, intermittent, feels like distended, no aggravating or relieving factors associated with abdominal pain. Patient does admit to decreased in frequency of bowel movements last bowel movement 4 days ago. Complain of nausea but no vomiting. Denies any fever or chills. No complaint of chest pain or shortness of breath. Because of the abdominal pain patient came to the ER Initial lab work done in the ER showed WBC 8, hemoglobin 17.3, platelet count 387, sodium 1:30, potassium 5.6, BUN 16, creatinine 0.8, lactate 3.8, total bilirubin 1.7, CT abdominal and pelvis done showed high-grade small bowel obstruction with transition point the central anterior lower abdominal likely from adhesion. Similar mild intra-and extrahepatic biliary duct dilatation status post cholecystectomy Chest x-ray done in the ER showed chronic changes without acute pulmonary process Patient admitted to medicine service REVIEW OF SYSTEMS: CONSTITUTIONAL: No fever, no malaise, no fatigue. HEENT: No recent visual problems or hearing problems. Denied any sore throat. CARDIOVASCULAR: No chest pain, orthopnea, PND, no palpitations, no syncope. PULMONARY: As mentioned in HPI GASTROINTESTINAL: As mentioned in HPI NEUROLOGICAL: No headaches, no weakness, no numbness. HEMATOLOGICAL: Denies any bleeding or petechiae. GENITOURINARY: Denies any burning micturition, frequency, or urgency. MUSCULOSKELETAL/RHEUMATOLOGICAL: Denies any joint pain, swelling, or any muscle pain. ENDOCRINE: Denies any polyuria or polydipsia. The rest of the 14-point review of systems is negative. PHYSICAL EXAMINATION: GENERAL: The patient is alert and oriented x3, not in any acute distress. Well developed, well nourished. HEENT: Pupils are round and equally reacting to light. EOMI. No scleral icterus. No conjunctival pallor. Normocephalic, atraumatic. No pharyngeal erythema. No thyromegaly. CARDIOVASCULAR: S1 and S2 present. No murmurs, rubs, or gallops. PULMONARY: Chest is clear to auscultation, no wheezing or crackles. ABDOMEN: Soft, nontender, nondistended, normoactive bowel sounds. No palpable organomegaly. MUSCULOSKELETAL: No joint swelling or deformity. EXTREMITIES: No cyanosis, clubbing, or pedal edema. NEUROLOGICAL: Gross neurological examination did not reveal any focal deficits. SKIN: No rashes. Assessment and plan Small bowel obstruction Hyperkalemia Hypercalcemia Hypertension Hypothyroidism Monitor vital signs Monitor CBC Monitor CMP Continue IV fluids Continue antiemetics Continue NG tube management per general surgery Continue bowel rest Serial abdominal exams. Monitor blood sugar levels, continue sliding scale insulin Hold blood pressure medications for now as patient is normotensive Surgery consulted Labs and medication were reviewed.. Continue same treatment. Continue with symptomatic treatment. Resume home medication. Monitor labs and vitals. DVT a nd GI prophylaxis. Further recommendations as per clinical course of the patient Dictation was produced using [employer] dictation software. please excuse any grammatical, word or spelling errors. Past Medical History Past Medical History: Diabetes Mellitus, GERD/Reflux, Hypertension, Musculoskeletal Disorder, Neurologic Disorder, Renal Disease, Thyroid Disorder Additional Past Medical History / Comment(s): Cushings syndrome, uncontrolled diabetes, hasimoto's, Metabolic Myopathy, Shingles (May 2021), partially functio nella kidneys, gastroperesis History of Any Multi-Drug Resistant Organisms: None Reported Past Surgical History: Appendectomy, Bowel Resection, Cholecystectomy Additional Past Surgical History / Comment(s): lipoma removals, sinus surgery x 2, oral surgery, ostomy and reversal (15 yrs ago) Past Anesthesia/Blood Transfusion Reactions: No Reported Reaction Past Psychological History: Anxiety Smoking Status: Never smoker Past Alcohol Use History: None Reported Past Drug Use History: None Reported Medications and Allergies Home Medications Medication Instructions Recorded Confirmed Type Gabapentin 300 mg PO BID PRN 07/03/21 02/27/23 History Gabapentin 300 mg PO HS 07/03/21 02/27/23 History Levothyroxine Sodium [Synthroid] 75 mcg PO HS 07/03/21 02/27/23 History Mercaptopurine [Purinethol] 50 mg PO BID 07/03/21 02/27/23 History predniSONE 3 mg PO DAILY 07/03/21 02/27/23 History Chlorthalidone [Hygroton] 25 mg PO DAILY 02/27/23 02/27/23 History Famotidine [Pepcid] 20 mg PO BID 02/27/23 02/27/23 History Insulin Aspart [NovoLOG Flexpen] See Protocol SQ TID-W/MEALS PRN 02/27/23 02/27/23 History Insulin Glargine,Hum.rec.anlog 36 units SQ BID 02/27/23 02/27/23 History [Lantus Solostar Pen] Linaclotide [Linzess] 145 mcg PO DAILY 02/27/23 02/27/23 History Losartan Potassium [Cozaar] 100 mg PO DAILY 02/27/23 02/27/23 History Omeprazole 40 mg PO BID 02/27/23 02/27/23 History oxyCODONE HCL [oxyCODONE HCL (IR)] 10 mg PO Q4H PRN 02/27/23 02/27/23 History polyethylene glycoL 3350 [Miralax] 17 gm PO HS 02/27/23 02/27/23 History predniSONE 2 mg PO HS 02/27/23 02/27/23 History Allergies Allergy/AdvReac Type Severity Reaction Status Date / Time Sulfa (Sulfonamide Allergy Rash/Hives Verified 02/27/23 16:52 Antibiotics) amoxicillin AdvReac Diarrhea/C Verified 02/27/23 16:52 Diff hydromorphone [From Dilaudid] AdvReac Rash/Hives Verified 02/27/23 16:52 Macrolide Antibiotics AdvReac Diarrhea/C Verified 02/27/23 16:52 Diff Oxazolidinone Antibacterials AdvReac Diarrhea/C Verified 02/27/23 16:52 Diff Penicillins AdvReac Diarrhea/C Verified 02/27/23 16:52 Diff Physical Exam Vitals: Vital Signs Temp Pulse Pulse Resp BP BP Pulse Ox 02/28/23 06:58 97.5 F L 101 H 15 127/80 95 02/28/23 00:32 98 F 114 H 16 115/77 95 02/27/23 22:32 97.1 F L 109 H 18 126/87 96 02/27/23 18:37 104 H 18 154/100 98 02/27/23 17:34 97.2 F L 57 L 18 143/87 98 02/27/23 15:39 97 F L 111 H 16 142/91 99 Intake and Output 02/27/23 02/28/23 02/28/23 22:59 06:59 14:59 Output Total 300 Balance -300 Output: Gastric Drainage 300 Other: # Voids 2 Weight 105.233 kg 105.233 kg Results CBC & Chem 7: 02/28/23 06:13 02/28/23 06:13 Labs: Abnormal Lab Results - Last 24 Hours (Table) 02/27/23 02/27/23 02/27/23 Range/Units 15:56 17:17 17:17 Sodium 136 L (137-145) mmol/L Potassium 5.6 H (3.5-5.1) mmol/L Glucose 260 H (74-99) mg/dL POC Glucose (mg/dL) (70-110) mg/dL Plasma Lactic Acid Paras 3.8 H* (0.7-2.0) mmol/L Calcium 10.4 H (8.4-10.2) mg/dL Total Bilirubin 1.7 H (0.2-1.3) mg/dL Total Protein 9.0 H (6.3-8.2) g/dL Urine pH 8.5 H (5.0-8.0) Urine Glucose (UA) 4+ H (Negative) Urine Ketones 1+ H (Negative) 02/27/23 02/27/23 02/28/23 Range/Units 18:55 19:44 05:30 Sodium (137-145) mmol/L Potassium 3.2 L (3.5-5.1) mmol/L Glucose (74-99) mg/dL POC Glucose (mg/dL) 197 H 161 H (70-110) mg/dL Plasma Lactic Acid Paras (0.7-2.0) mmol/L Calcium (8.4-10.2) mg/dL Total Bilirubin (0.2-1.3) mg/dL Total Protein (6.3-8.2) g/dL Urine pH (5.0-8.0) Urine Glucose (UA) (Negative) Urine Ketones (Negative) 02/28/23 02/28/23 Range/Units 06:13 07:47 Sodium (137-145) mmol/L Potassium (3.5-5.1) mmol/L Glucose 152 H (74-99) mg/dL POC Glucose (mg/dL) 152 H (70-110) mg/dL Plasma Lactic Acid Paras (0.7-2.0) mmol/L Calcium (8.4-10.2) mg/dL Total Bilirubin (0.2-1.3) mg/dL Total Protein (6.3-8.2) g/dL Urine pH (5.0-8.0) Urine Glucose (UA) (Negative) Urine Ketones (Negative)
--- NOTE | 2023-02-28 14:58 | P.GSCN ---
History of Present Illness Consult date: 02/28/23 History of present illness: CHIEF COMPLAINT: Abdominal pain HISTORY OF PRESENT ILLNESS: This is a 58-year-old male who presented to the hospital with complaints of lower abdominal pain. Patient's reports that patient's pain started about a week ago but yesterday he had increase in pain and was complaining of not feeling well. Patient has been having nausea and vomiting. Last bowel movement was yesterday. He has a past surgical history that includes diverticulitis with colectomy and colostomy placement and then reversal of colostomy. Also history of appendectomy and cholecystectomy. Patient has computed tomography scan of the abdomen and pelvis that revealed a high-grade small bowel obstruction with transition point in the anterior lower abdomen likely secondary to adhesions. Patient did start the small bowel follow-through however he had increase in pain and severe nausea and then was vomiting. And the test was canceled at that point. Patient has NG tube in place 1 L output through the day today. Patient had been vomiting past the NG tube. Patient has been tachycardic. No prior history of bowel obstruction. PAST MEDICAL HISTORY: See below. Marinette's syndrome, diabetes mellitus, hypertension, Chris's, gastroparesis, renal disease PAST SURGICAL HISTORY: See below MEDICATIONS: See below ALLERGIES: See below SOCIAL HISTORY: No illicit drug use. REVIEW OF SYSTEMS: CONSTITUTIONAL: Denies fever or chills. HEENT: Denies blurred vision, vision changes, or eye pain. Denies hemoptysis CARDIOVASCULAR: Denies chest pain or pressure. RESPIRATORY: No shortness of breath. GASTROINTESTINAL: See HPI for pertinent findings HEMATOLOGIC: Denies bleeding disorders. GENITOURINARY: Denies any blood in urine or increased urinary frequency. SKIN: Denies pruitis. Denies rash. PHYSICAL EXAM: VITAL SIGNS: Reviewed GENERAL: Well-developed in no acute distress. ABDOMEN: Distended. Tenderness palpation of the lower abdomen. NG tube in place with tannish output. NEUROLOGIC: Alert and oriented. Cranial nerves II through XII grossly intact. LABORATORY DATA: WBC 7.5 Hgb 15.9 and platelets 300 INR 0.9 Sodium 138 potassium 3.6 creatinine 0.92 Glucose 183 Lactic acid 3.8 down to 1.4 Total bili 1.7 AST 57 ALT 35 alk phos 91 lipase 142 IMAGING: Computed tomography scan abdomen and pelvis shows high-grade small bowel ob struction with transition point in the central anterior lower abdomen likely from adhesion. Similar mild intra-and extrahepatic biliary ductal dilatation status post cholecystectomy. Atrophy of the left kidney we demonstrated with nonobstructive left renal calculus. ASSESSMENT: 1. High-grade small bowel obstruction with transition point in the central anterior lower abdomen likely from adhesions noted on CT 2. History of prior abdominal surgeries PLAN: -Patient scheduled for Exploratory laparotomy with possible bowel resection today with Dr. 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 Signing provider agrees with the documented findings, assessment, and plan of care. I have personally seen and examined the patient, reviewed the CHIEF OF PRODUCTION /PAs history, exam and MDM and agree with the assessment and plan as written. Based on total v isit time, I have performed more than 50% of the visit. As above: Patient presents to the ER with complaints of crampy increasing abdominal pain. This is been associated with nausea and decreased bowel function. X-rays and CAT scan showed findings of small bowel obstruction. Patient went today for small bowel series with increasing pain and persistent small bowel dilation consistent with ongoing small bowel obstruction per radiology. Findings discussed with patient and . Observation versus surgical approach discussed. Given the patient's significant abdominal discomfort and diagnostic findings will proceed with exploratory laparotomy with possible bowel resection. Risks of bleeding, infection, scarring, need for resection, leak, abscess, recurrent obstruction, ileus, possible need for ostomy, assuring cardiac complications all reviewed. Patient understands and wishes to proceed. Past Medical History Past Medical History: Diabetes Mellitus, GERD/Reflux, Hypertension, Musculoskeletal Disorder, Neurologic Disorder, Renal Disease, Thyroid Disorder Additional Past Medical History / Comment(s): Cushings syndrome, uncontrolled diabetes, hasimoto's, Metabolic Myopathy, Shingles (May 2021), partially functioning kidneys, gastroperesis History of Any Multi-Drug Resistant Organisms: None Reported Past Surgical History: Appendectomy, Bowel Resection, Cholecystectomy Additional Past Surgical History / Comment(s): lipoma removals, sinus surgery x 2, oral surgery, ostomy and reversal (15 yrs ago) Past Anesthesia/Blood Transfusion Reactions: No Reported Reaction Past Psychological History: Anxiety Smoking Status: Never smoker Past Alcohol Use History: None Reported Past Drug Use History: None Reported Medications and Allergies Home Medications Medication Instructions Recorded Confirmed Type Gabapentin 300 mg PO BID PRN 07/03/21 02/27/23 History Gabapentin 300 mg PO HS 07/03/21 02/27/23 History Levothyroxine Sodium [Synthroid] 75 mcg PO HS 07/03/21 02/27/23 History Mercaptopurine [Purinethol] 50 mg PO BID 07/03/21 02/27/23 History predniSONE 3 mg PO DAILY 07/03/21 02/27/23 History Chlorthalidone [Hygroton] 25 mg PO DAILY 02/27/23 02/27/23 History Famotidine [Pepcid] 20 mg PO BID 02/27/23 02/27/23 History Insulin Aspart [NovoLOG Flexpen] See Protocol SQ TID-W/MEALS PRN 02/27/23 02/27/23 History Insulin Glargine,Hum.rec.anlog 36 units SQ BID 02/27/23 02/27/23 History [Lantus Solostar Pen] Linaclotide [Linzess] 145 mcg PO DAILY 02/27/23 02/27/23 History Losartan Potassium [Cozaar] 100 mg PO DAILY 02/27/23 02/27/23 History Omeprazole 40 mg PO BID 02/27/23 02/27/23 History oxyCODONE HCL [oxyCODONE HCL (IR)] 10 mg PO Q4H PRN 02/27/23 02/27/23 History polyethylene glycoL 3350 [Miralax] 17 gm PO HS 02/27/23 02/27/23 History predniSONE 2 mg PO HS 02/27/23 02/27/23 History Allergies Allergy/AdvReac Type Severity Reaction Status Date / Time Sulfa (Sulfonamide Allergy Rash/Hives Verified 02/27/23 16:52 Antibiotics) amoxicillin AdvReac Diarrhea/C Verified 02/27/23 16:52 Diff hydromorphone [From Dilaudid] AdvReac Rash/Hives Verified 02/27/23 16:52 Macrolide Antibiotics AdvReac Diarrhea/C Verified 02/27/23 16:52 Diff Oxazolidinone Antibacterials AdvReac Diarrhea/C Verified 02/27/23 16:52 Diff Penicillins AdvReac Diarrhea/C Verified 02/27/23 16:52 Diff Surgical - Exam Vital Signs Temp Pulse Resp BP Pulse Ox 97 F L 111 H 16 142/91 99 02/27/23 15:39 02/27/23 15:39 02/27/23 15:39 02/27/23 15:39 02/27/23 15:39 Results - Labs 02/28/23 06:13 02/28/23 06:13 Abnormal Lab Results - Last 24 Hours (Table) 02/27/23 02/27/23 02/27/23 Range/Units 15:56 17:17 17:17 Sodium 136 L (137-145) mmol/L Potassium 5.6 H (3.5-5.1) mmol/L Glucose 260 H (74-99) mg/dL POC Glucose (mg/dL) (70-110) mg/dL Plasma Lactic Acid Paras 3.8 H* (0.7-2.0) mmol/L Calcium 10.4 H (8.4-10.2) mg/dL Total Bilirubin 1.7 H (0.2-1.3) mg/dL Total Protein 9.0 H (6.3-8.2) g/dL Urine pH 8.5 H (5.0-8.0) Urine Glucose (UA) 4+ H (Negative) Urine Ketones 1+ H (Negative) 02/27/23 02/27/23 02/28/23 Range/Units 18:55 19:44 05:30 Sodium (137-145) mmol/L Potassium 3.2 L (3.5-5.1) mmol/L Glucose (74-99) mg/dL POC Glucose (mg/dL) 197 H 161 H (70-110) mg/dL Plasma Lactic Acid Paras (0.7-2.0) mmol/L Calcium (8.4-10.2) mg/dL Total Bilirubin (0.2-1.3) mg/dL Total Protein (6.3-8.2) g/dL Urine pH (5.0-8.0) Urine Glucose (UA) (Negative) Urine Ketones (Negative) 02/28/23 02/28/23 02/28/23 Range/Units 06:13 07:47 11:35 Sodium (137-145) mmol/L Potassium (3.5-5.1) mmol/L Glucose 152 H (74-99) mg/dL POC Glucose (mg/dL) 152 H 183 H (70-110) mg/dL Plasma Lactic Acid Paras (0.7-2.0) mmol/L Calcium (8.4-10.2) mg/dL Total Bilirubin (0.2-1.3) mg/dL Total Protein (6.3-8.2) g/dL Urine pH (5.0-8.0) Urine Glucose (UA) (Negative) Urine Ketones (Negative) Diabetes panel 02/27/23 02/27/23 02/28/23 Range/Units 17:17 18:55 06:13 Sodium 136 L 138 (137-145) mmol/L Potassium 5.6 H 3.2 L 3.6 (3.5-5.1) mmol/L Chloride 101 103 (98-107) mmol/L Carbon Dioxide 22 23 (22-30) mmol/L BUN 16 15 (9-20) mg/dL Creatinine 0.80 0.92 (0.66-1.25) mg/dL Glucose 260 H 152 H (74-99) mg/dL Calcium 10.4 H 9.4 (8.4-10.2) mg/dL AST 57 (17-59) U/L ALT 35 (4-49) U/L Alkaline Phosphatase 91 (38-126) U/L Total Protein 9.0 H (6.3-8.2) g/dL Albumin 5.0 (3.5-5.0) g/dL Calcium panel 02/27/23 02/28/23 Range/Units 17:17 06:13 Calcium 10.4 H 9.4 (8.4-10.2) mg/dL Albumin 5.0 (3.5-5.0) g/dL Pituitary panel 02/27/23 02/27/23 02/28/23 Range/Units 17:17 18:55 06:13 Sodium 136 L 138 (137-145) mmol/L Potassium 5.6 H 3.2 L 3.6 (3.5-5.1) mmol/L Chloride 101 103 (98-107) mmol/L Carbon Dioxide 22 23 (22-30) mmol/L BUN 16 15 (9-20) mg/dL Creatinine 0.80 0.92 (0.66-1.25) mg/dL Glucose 260 H 152 H (74-99) mg/dL Calcium 10.4 H 9.4 (8.4-10.2) mg/dL Adrenal panel 02/27/23 02/27/23 02/28/23 Range/Units 17:17 18:55 06:13 Sodium 136 L 138 (137-145) mmol/L Potassium 5.6 H 3.2 L 3.6 (3.5-5.1) mmol/L Chloride 101 103 (98-107) mmol/L Carbon Dioxide 22 23 (22-30) mmol/L BUN 16 15 (9-20) mg/dL Creatinine 0.80 0.92 (0.66-1.25) mg/dL Glucose 260 H 152 H (74-99) mg/dL Calcium 10.4 H 9.4 (8.4-10.2) mg/dL Total Bilirubin 1.7 H (0.2-1.3) mg/dL AST 57 (17-59) U/L ALT 35 (4-49) U/L Alkaline Phosphatase 91 (38-126) U/L Total Protein 9.0 H (6.3-8.2) g/dL Albumin 5.0 (3.5-5.0) g/dL
[2023-02-28] MEDS: INSULIN ASPART (NovoLOG) 100 UNIT/ML VIAL SQ SCH ×3 (15:35→21:45)
[2023-02-28 16:11] LABS: Glucose,Whole Blood 207 mg/dL (70-110)
[2023-02-28] MEDS ORDERED: IV FLUID CONTINUATION 700 ML IV ONE (16:14)
[2023-02-28] MEDS: ONDANSETRON 4 MG/2 ML VIAL IVP STA (16:21)
[2023-02-28] MEDS ORDERED: LIDOCAINE 2% INJ 20 MG/ML (2 ML VIAL) ONE (16:30)
[2023-02-28] MEDS ORDERED: MIDAZOLAM 2 MG/2 ML VIAL ONE (16:30)
[2023-02-28] MEDS ORDERED: PHENYLEPHRINE-0.9% NACL SYG 1,000 MCG/10 ML SYRINGE ONE (16:30)
[2023-02-28] MEDS ORDERED: GLYCOPYRROLATE 0.2 MG/ML 2 ML VIAL ONE (16:30)
[2023-02-28] MEDS ORDERED: SUCCINYLCHOLINE CHLORIDE 200 MG/10 ML VIAL IV ONE (16:30)
[2023-02-28] MEDS ORDERED: ROCURONIUM 10 MG/ML (5 ML VIAL) IV ONE (16:30)
[2023-02-28] MEDS ORDERED: ceFAZolin 1,000 MG VIAL ONE (16:30)
[2023-02-28] MEDS ORDERED: NEOSTIGMINE 1 MG/ML 10 ML VIAL ONE (16:30)
[2023-02-28] MEDS ORDERED: PROPOFOL 10 MG/ML 20 ML VIAL IV ONE (16:30)
[2023-02-28] MEDS ORDERED: SODIUM CHLORIDE 0.9% 100 ML BAG ONE (16:30)
[2023-02-28] MEDS ORDERED: fentaNYL (PF) 50 MCG/ML 2 ML AMP ONE (16:30)
[2023-02-28] MEDS ORDERED: HYDROmorphone (PF) 1 MG/ML ONE (16:30)
[2023-02-28] MEDS ORDERED: SODIUM CHLORIDE 0.9% 50 ML with ceFAZolin 2,000 MG IV ONE ×2 (16:34)
[2023-02-28] MEDS ORDERED: LACTATED RINGERS 1,000 ML IV ONE (17:09)
--- NOTE | 2023-02-28 17:35 | FL ---
EXAMINATION TYPE: FL small bowel follow through with Gastrografin DATE OF EXAM: 02/28/2023 CLINICAL HISTORY: 58-year-old male small bowel obstruction TECHNIQUE: A single contrast small bowel follow through is performed utilizing diluted Gastrografin , 2:1. COMPARISON: CT 02/27/2023 FINDINGS: Steam Pipe Fitter image of the abdomen shows no gross abnormality. An NG tube is present. Some surgic al clips are present along the left flank. Gastrografin is administered via the patient's NG tube. Small bowel loops show progressive dilatation in the left lower quadrant and mid abdomen up to 5.7 cm. There is progressive marked dilution of the Gastrografin. After 1 hour 10 minutes, the patient is sent back to the room. A portable exam is done at the 3 hour time point and there is diffuse dilution throughout dilated sma ll bowel loops. IMPRESSION: 1. Progressive dilution of the administered Gastrografin with small bowel loops dilated up to nearly 6 cm. 2. At the 3 hour time point, there is marked diffuse dilution of the Gastrografin throughout the abdo men. Findings most compatible with ongoing small bowel obstruction.
[2023-02-28] MEDS ORDERED: diphenhydrAMINE 50 MG/ML 1 ML VIAL IVP PRN (18:49)
[2023-02-28] MEDS ORDERED: HYDROmorphone 0.5 MG/0.5 ML SYRINGE IVP ONE ×3 (18:56→20:06)
--- NOTE | 2023-02-28 18:56 | P.OP ---
Date of Procedure: 02/28/23 Procedure(s) Performed: PREOPERATIVE DIAGNOSIS: Small bowel obstruction POSTOPERATIVE DIAGNOSIS: Small bowel obstruction secondary to abdominal adhesions, extensive abdominal adhesions PROCEDURE: Exploratory laparotomy with small bowel resection and extensive lysis of adhesions SURGEON: Danny EBL: 25 mL ANESTHESIA: Gen. COMPLICATIONS: None OPERATIVE PROCEDURE: Patient placed on the operative table in the supine position. The patient was placed under general anesthesia. The abdomen was prepped and draped sterilely. The previous midline incision was re-incised sharply. The subcutaneous tissues and fascia were divided using both electrocautery and sharp dissection. The patient had small bowel that was densely adherent to the underlying fascia especially in the midline. Painstakingly we were able to mobilize the small bowel loops in the midline. We then worked laterally right and left. Once we had enough space the Bookwalter retractor was utilized. I was able to palpate the area of obstruction where the significantly distended bowel transition to into a very normal segment and thin caliber bowel. There was a rather tight turn there out any adhesive band. There was formed stool in the small bowel proximal to the site of obstruction. Further mobilization of the small bowel took place. Once we had adequate mobilization of not only the obstruction site but distal to that by approximately 2 feet and proximal to that by about 5-6 feet we identified a section of small bowel that would be removed. This measured approximately 3 feet in length given the significant chronic inflammatory changes and mildly ischemic appearance to this bowel loop. The bowel was divided at both proximal and distal locations using a linear 75 stapler. The mesentery was divided using LigaSure. Small areas of bleeding along the mesentery were controlled using [id number] 2-0 Vicryl suture. A [id number] anastomosis then took place. The antimesenteric portion of the staple line was removed. The linear 75 stapler was fired along the antimesenteric border. The remaining defect was closed using a TX 60 device. The TX staple line was imbricated using interrupted 3-0 GI silk sutures. A 3-0 GI silk crotch stitch was placed. The abdomen was copiously area with 3 L of saline. During the procedure the nasogastric tube was removed and replaced and 600 mL of succus was evacuated. There was at least 5 feet of small intestine that was adhesed in the upper left abdomen that was left alone. There was approximate 2 feet or so distal to the anastomosis that was mostly fully mobilized. What I could see of the colon appeared normal. It should be noted that when we entered the abdominal cavity there was a slightly cloudy appearance slight odor to the peritoneal fluid. I suspect there may have been some translocation given the significant distention of the bowel and the mildly ischemic appearance to the bowel proximal to the obstruction site. The midline fascia was then reapproximated using 3 separate double-stranded PDS sutures. The skin was closed using ben. Sterile dr essings were applied. DISPOSITION: Stable to recovery room
[2023-02-28] MEDS ORDERED: KETOROLAC 15 MG/ML 1 ML VIAL IVP ONE (19:35)
[2023-02-28] MEDS ORDERED: ONDANSETRON 4 MG/2 ML VIAL IVP ONE (19:40)
[2023-02-28] MEDS ORDERED: predniSONE 1 MG TAB PO SCH (21:00)
[2023-02-28] MEDS: GABAPENTIN 300 MG CAP PO SCH (22:38)
[2023-02-28] MEDS: LEVOTHYROXINE 75 MCG TAB PO SCH (22:38)
[2023-02-28 22:55] LABS: Glucose,Whole Blood 173 mg/dL (70-110)
[2023-02-28] MEDS: fentaNYL PCA 500 MCG/50 ML BAG IV PRN (23:05)
[2023-03-01] MEDS: HYDROmorphone 1 MG/ML 1 ML SYRINGE IVP PRN ×3 (02:08→08:01)
[2023-03-01] MEDS: HYDROCORTISONE SUCCINATE 100 MG/2 ML VIAL IV SCH ×3 (05:04→20:43)
[2023-03-01] MEDS: fentaNYL PCA 500 MCG/50 ML BAG IV PRN (05:11)
[2023-03-01 05:25] LABS: Glucose,Whole Blood 191 mg/dL (70-110)
[2023-03-01 08:17] LABS: HCT 44.2 % (39.0-53.0); HGB 14.3 gm/dL (13.0-17.5); MCHC 32.4 g/dL (31.0-37.0); MCV 95.7 fL (80.0-100.0); Mean Platelet Volume 7.9; Platelet Count 288 k/uL (150-450); RBC 4.62 m/uL (4.30-5.90); RDW 13.5 % (11.5-15.5); WBC 9.5 k/uL (3.8-10.6)
[2023-03-01 08:26] LABS: ALT 62 U/L (4-49); AST 36 U/L (17-59); African American GFR (CKD) >90 (>60 ml/min/1.73 sqM); Albumin 3.6 g/dL (3.5-5.0); Albumin/Globulin Ratio 1.2; Alkaline Phosphatase 90 U/L (38-126); Anion Gap 13 mmol/L; Blood Urea Nitrogen 19 mg/dL (9-20); Carbon Dioxide 22 mmol/L (22-30); Chloride 104 mmol/L (98-107); Globulin 2.9 g/dL; Glucose 207 mg/dL (74-99); Non-African American GFR(CKD) >90 (>60 ml/min/1.73 sqM); Potassium 3.6 mmol/L (3.5-5.1); Sodium 139 mmol/L (137-145); Total Bilirubin 1.2 mg/dL (0.2-1.3); Total Protein 6.5 g/dL (6.3-8.2)
[2023-03-01] MEDS ORDERED: predniSONE 1 MG TAB PO SCH (09:00)
[2023-03-01] MEDS: INSULIN ASPART (NovoLOG) 100 UNIT/ML VIAL SQ SCH ×4 (09:59→20:38)
[2023-03-01] MEDS: PATIENT'S OWN (Linaclotide [Linzess] 145 MCG Capsule) PO SCH (10:00)
[2023-03-01] MEDS: MORPHINE SULFATE 4 MG/ML SYRINGE IV PRN ×2 (10:42→15:15)
[2023-03-01] MEDS ORDERED: DEXTROSE 50% SYRINGE 50 ML IVP PRN ×2 (10:56)
[2023-03-01 11:57] LABS: Glucose,Whole Blood 205 mg/dL (70-110)
[2023-03-01] MEDS: ACETAMINOPHEN IV (For NPO) 1,000 MG in EMPTY BAG 1 BAG IVPB SCH ×4 (12:02→23:24)
--- NOTE | 2023-03-01 12:56 | P.PN ---
Subjective Progress Note Date: 03/01/23 Principal diagnosis: small bowel obstruction, s/p exlap janie Complains of extreme pain. Was given dilaudid overnight for aid in pain control. States OVEN BUILDER not working. Objective - Vital Signs Vital signs: Vital Signs Temp 98.4 F 03/01/23 07:12 Pulse 120 H 03/01/23 07:12 Resp 16 03/01/23 07:12 BP 137/73 03/01/23 07:12 Pulse Ox 91 L 03/01/23 07:12 FiO2 Intake & Output 02/28/23 03/01/23 03/01/23 18:59 06:59 18:59 Intake Total 1850 Output Total 1275 400 Balance 575 -400 Intake: IV 1850 Output: Gastric Drainage 1000 Urine 250 400 Estimated Blood Loss 25 Other: Voiding Method Indwelling Catheter Indwelling Catheter - Constitutional Constitutional Comment(s): obese General appearance: Present: mild distress - EENT Eyes: Present: normal appearance ENT: Present: hearing grossly normal - Respiratory Details: nonlabored respirations - Cardiovascular Rhythm: regular - Gastrointestinal Gastrointestinal Comment(s): appropriate ttp, no rebound/guarding General gastrointestinal: Present: distended, soft, tenderness - Integumentary Integumentary: Present: normal - Neurologic Neurologic: Present: CNII-XII intact - Musculoskeletal Musculoskeletal: Present: strength equal bilaterally - Labs CBC & Chem 7: 03/01/23 07:20 03/01/23 07:20 Labs: Abnormal Lab Results - Last 24 Hours (Table) 02/28/23 02/28/23 03/01/23 Range/Units 16:10 22:54 05:24 Glucose (74-99) mg/dL POC Glucose (mg/dL) 207 H 173 H 191 H (70-110) mg/dL ALT (4-49) U/L 03/01/23 03/01/23 Range/Units 07:20 11:56 Glucose 207 H (74-99) mg/dL POC Glucose (mg/dL) 205 H (70-110) mg/dL ALT 62 H (4-49) U/L Assessment and Plan Assessment: s/p resection. Significant opiod tolerance due to chronic home meds. Restarted home regimen with OVEN BUILDER to treat post-op pain. Recommend ambulation in hallway today and Incentive spirometry. (1) Small bowel obstruction Current Visit: Yes Status: Acute Code(s): K56.609 - UNSP INTESTNL OBST, UNSP TO PARTIAL VERSUS COMPLETE OBST SNOMED Code(s): 299638203
--- NOTE | 2023-03-01 13:51 | P.PN ---
Subjective Progress Note Date: 03/01/23 58-year-old gentleman with past medical history significant for diabetes, h ypertension, suspected UC, arthritis, diverticulitis with resulting partial colectomy with ostomy and ostomy reversal presented to the ER because of abdominal pain. Patient stated the abdominal pain started a few days ago, located in the bilateral lower quadrant, intermittent, feels like distended, no aggravating or relieving factors associated with abdominal pain. Patient does admit to decreased in frequency of bowel movements last bowel movement 4 days ago. Complain of nausea but no vomiting. Denies any fever or chills. No complaint of chest pain or shortness of breath. Because of the abdominal pain patient came to the ER Initial lab work done in the ER showed WBC 8, hemoglobin 17.3, platelet count 387, sodium 1:30, potassium 5.6, BUN 16, creatinine 0.8, lactate 3.8, total bilirubin 1.7, CT abdominal and pelvis done showed high-grade small bowel obstruction with transition point the central anterior lower abdominal likely from adhesion. Similar mild intra-and extrahepatic biliary duct dilatation status post cholecystectomy Chest x-ray done in the ER showed chronic changes without acute pulmonary process Patient admitted to medicine service 03/01. Patient seen and examined. Patient underwent Exploratory laparotomy with small bowel resection and extensive lysis of adhesions. NG tube in place. Still not passing gas. States abdominal pain has improved REVIEW OF SYSTEMS: CONSTITUTIONAL: No fever, no malaise,. CARDIOVASCULAR: No chest pain, no palpitations, no syncope. PULMONARY: No shortness of breath, no cough, GASTROINTESTINAL: No diarrhea, no nausea, no vomiting, no abdominal pain. NEUROLOGICAL: No headaches, no weakness, PHYSICAL EXAMINATION: GENERAL: The patient is alert and oriented x3, not in any acute distress. Well developed, well nourished. NG tube in place HEENT: Pupils are round and equally reacting to light. EOMI. No scleral icterus. No conjunctival pallor. Normocephalic, atraumatic. No pharyngeal erythema. No thyromegaly. CARDIOVASCULAR: S1 and S2 present. No murmurs, rubs, or gallops. PULMONARY: Chest is clear to auscultation, no wheezing or crackles. ABDOMEN: Tender, laparotomy surgical incision seen, and no guarding. Bowel sounds are sluggish MUSCULOSKELETAL: No joint swelling or deformity. EXTREMITIES: No cyanosis, clubbing, or pedal edema. NEUROLOGICAL: Gross neurological examination did not reveal any focal deficits. SKIN: No rashes. Assessment and plan Small bowel obstruction Hyperkalemia Hypercalcemia Hypertension Hypothyroidism Monitor vital signs Monitor CBC Monitor CMP Status post Exploratory laparotomy with small bowel resection and extensive lysis of adhesions Continue IV fluids continue pain management Continue stress dose of steroids in the form of Solu-Cortef Monitor blood sugar levels, continue sliding scale insulin, start Lantus 5 units twice a day Currently nothing by mouth, diet per surgery. Follow-up surgery recommendations Labs and medication were reviewed.. Continue same treatment. Continue with symptomatic treatment. Resume home medication. Monitor labs and vitals. DVT and GI prophylaxis. Further recommendations as per clinical course of the patient Dictation was produced using [employer] dictation software. please excuse any grammatical, word or spelling errors. Objective - Vital Signs Vital signs: Vital Signs Temp 98.4 F 03/01/23 07:12 Pulse 120 H 03/01/23 07:12 Resp 16 03/01/23 07:12 BP 137/73 03/01/23 07:12 Pulse Ox 91 L 03/01/23 07:12 FiO2 Intake & Output 02/28/23 03/01/23 03/01/23 18:59 06:59 18:59 Intake Total 1850 Output Total 1275 400 Balance 575 -400 Intake: IV 1850 Output: Gastric Drainage 1000 Urine 250 400 Estimated Blood Loss 25 Other: Voiding Method Indwelling Catheter - Labs CBC & Chem 7: 03/01/23 07:20 03/01/23 07:20 Labs: Abnormal Lab Results - Last 24 Hours (Table) 02/28/23 02/28/23 02/28/23 Range/Units 11:35 16:10 22:54 Glucose (74-99) mg/dL POC Glucose (mg/dL) 183 H 207 H 173 H (70-110) mg/dL ALT (4-49) U/L 03/01/23 03/01/23 Range/Units 05:24 07:20 Glucose 207 H (74-99) mg/dL POC Glucose (mg/dL) 191 H (70-110) mg/dL ALT 62 H (4-49) U/L
[2023-03-01 16:38] LABS: Glucose,Whole Blood 203 mg/dL (70-110)
[2023-03-01] MEDS: PROCHLORPERAZINE INJ 10 MG/2 ML VIAL IVP PRN (18:00)
[2023-03-01 20:14] LABS: Glucose,Whole Blood 158 mg/dL (70-110)
[2023-03-01] MEDS: INSULIN DETEMIR (LEVEMIR) 100 UNIT/ML SYR SQ SCH (20:38)
[2023-03-01] MEDS: GABAPENTIN 300 MG CAP PO SCH (20:39)
[2023-03-01] MEDS: LEVOTHYROXINE 75 MCG TAB PO SCH (20:40)
[2023-03-01] MEDS: ONDANSETRON 4 MG/2 ML VIAL IVP PRN (21:48)
[2023-03-02] MEDS: INSULIN DETEMIR (LEVEMIR) 100 UNIT/ML SYR SQ SCH ×2 (00:18→20:20)
[2023-03-02] MEDS: INSULIN ASPART (NovoLOG) 100 UNIT/ML VIAL SQ SCH ×4 (00:18→20:19)
[2023-03-02] MEDS: ACETAMINOPHEN IV (For NPO) 1,000 MG in EMPTY BAG 1 BAG IVPB SCH ×4 (04:38→22:56)
[2023-03-02] MEDS: HYDROCORTISONE SUCCINATE 100 MG/2 ML VIAL IV SCH ×2 (04:39→20:19)
[2023-03-02] MEDS: PROCHLORPERAZINE INJ 10 MG/2 ML VIAL IVP PRN ×3 (04:48→20:08)
[2023-03-02 06:05] LABS: Glucose,Whole Blood 180 mg/dL (70-110)
[2023-03-02] MEDS: PATIENT'S OWN (Linaclotide [Linzess] 145 MCG Capsule) PO SCH (08:57)
[2023-03-02 11:31] LABS: Glucose,Whole Blood 183 mg/dL (70-110)
--- NOTE | 2023-03-02 12:57 | P.PN ---
Subjective Progress Note Date: 03/02/23 58-year-old gentleman with past medical history significant for diabetes, h ypertension, suspected UC, arthritis, diverticulitis with resulting partial colectomy with ostomy and ostomy reversal presented to the ER because of abdominal pain. Patient stated the abdominal pain started a few days ago, located in the bilateral lower quadrant, intermittent, feels like distended, no aggravating or relieving factors associated with abdominal pain. Patient does admit to decreased in frequency of bowel movements last bowel movement 4 days ago. Complain of nausea but no vomiting. Denies any fever or chills. No complaint of chest pain or shortness of breath. Because of the abdominal pain patient came to the ER Initial lab work done in the ER showed WBC 8, hemoglobin 17.3, platelet count 387, sodium 1:30, potassium 5.6, BUN 16, creatinine 0.8, lactate 3.8, total bilirubin 1.7, CT abdominal and pelvis done showed high-grade small bowel obstruction with transition point the central anterior lower abdominal likely from adhesion. Similar mild intra-and extrahepatic biliary duct dilatation status post cholecystectomy Chest x-ray done in the ER showed chronic changes without acute pulmonary process Patient admitted to medicine service 03/01. Patient seen and examined. Patient underwent Exploratory laparotomy with small bowel resection and extensive lysis of adhesions. NG tube in place. Still not passing gas. States abdominal pain has improved 03/02. Patient seen and examined. Dose of Solu-Cortef decreased to 25 mg every 12. Complaining of abdominal pain, no nausea or vomiting. NG tube in place REVIEW OF SYSTEMS: CONSTITUTIONAL: No fever, no malaise,. CARDIOVASCULAR: No chest pain, no palpitations, no syncope. PULMONARY: No shortness of breath, no cough, GASTROINTESTINAL: As mentioned in HPI NEUROLOGICAL: No headaches, no weakness, PHYSICAL EXAMINATION: GENERAL: The patient is alert and oriented x3, not in any acute distress. Well developed, well nourished. NG tube in place HEENT: Pupils are round and equally reacting to light. EOMI. No scleral icterus. No conjunctival pallor. Normocephalic, atraumatic. No pharyngeal erythema. No thyromegaly. CARDIOVASCULAR: S1 and S2 present. No murmurs, rubs, or gallops. PULMONARY: Chest is clear to auscultation, no wheezing or crackles. ABDOMEN: Tender, laparotomy surgical incision seen, and no guarding. Bowel sounds are sluggish MUSCULOSKELETAL: No joint swelling or deformity. EXTREMITIES: No cyanosis, clubbing, or pedal edema. NEUROLOGICAL: Gross neurological examination did not reveal any focal deficits. SKIN: No rashes. Assessment and plan Small bowel obstruction Hyperkalemia Hypercalcemia Hypertension Hypothyroidism Monitor vital signs Monitor CBC Monitor CMP Status post Exploratory laparotomy with small bowel resection and extensive lysis of adhesions Continue IV fluids continue pain management Continue stress dose of steroids in the form of Solu-Cortef, dose decreased to 25 mg every 8 Monitor blood sugar levels, continue sliding scale insulin, continue Lantus 5 units twice a day Currently nothing by mouth, diet per surgery. Follow-up surgery recommendations Labs and medication were reviewed.. Continue same treatment. Continue with symptomatic treatment. Resume home medication. Monitor labs and vitals. DVT and GI prophylaxis. Further recommendations as per clinical course of the patient Dictation was produced using [email or web address] dictation software. please excuse any g rammatical, word or spelling errors. Objective - Vital Signs Vital signs: Vital Signs Temp 98.2 F 03/02/23 08:00 Pulse 110 H 03/02/23 08:00 Resp 16 03/02/23 08:00 BP 138/84 03/02/23 08:00 Pulse Ox 93 L 03/02/23 08:00 FiO2 Intake & Output 03/01/23 03/02/23 03/02/23 18:59 06:59 18:59 Intake Total 1100 1100 Output Total 2000 1350 Balance -900 -250 Intake: Intake, IV Titration 1100 1100 Amount ACETAMINOPHEN IV (For NPO 200 200 ) 1,000 mg In Empty Bag 1 bag @ 400 mls/hr IVPB Q6HR [facility] Rx#:[id number] Lactated Ringers 1,000 ml 900 900 @ 0 mls/hr IV .[facility] Rx#:[id number] Output: Gastric Drainage 900 950 Urine 1100 400 Other: Voiding Method Indwelling Catheter Indwelling Catheter Indwelling Catheter - Labs CBC & Chem 7: 03/01/23 07:20 03/01/23 07:20 Labs: Abnormal Lab Results - Last 24 Hours (Table) 03/01/23 03/01/23 03/01/23 Range/Units 07:20 11:56 16:37 POC Glucose (mg/dL) 205 H 203 H (70-110) mg/dL Hemoglobin A1c 9.0 H (<=6.0) % 03/01/23 03/02/23 Range/Units 20:13 05:58 POC Glucose (mg/dL) 158 H 180 H (70-110) mg/dL Hemoglobin A1c (<=6.0) %
[2023-03-02] MEDS: oxyCODONE-APAP 10-325MG 1 EACH TAB PO PRN (13:09)
--- NOTE | 2023-03-02 16:23 | P.PN ---
Subjective Progress Note Date: 03/02/23 CHIEF COMPLAINT: Bowel obstruction HISTORY OF PRESENT ILLNESS: The patient is a 58-year-old male who presents with bowel obstruction status post lysis of adhesions, 02/28/2023. He complains of thrush as he had thrush prior. He is drinking moderate fluids. He has blood in his nasogastric tube. He reports moderate incisional pain. ROS: No reports of nausea and vomiting. No bowel movements. No fevers or chills. No new chest pain. No productive sputum PHYSICAL EXAM: VITAL SIGNS: Reviewed CONSTITUTIONAL: Well developed and in no acute distress. EYES: Conjuctivae without sclera icterus. Extraocular movements grossly intact. HEAD, EARS, NOSE, THROAT: Moist buccal mucosa. Head is atraumatic, normocephalic. Hears conversational speech. Nasogastric tube with dark succunt RESPIRATORY: Non-labored respirations and equal bilateral excursions. CARDIOVASCULAR: Palpable 2+ radial pulses. ABDOMEN: Incisional pain. MUSCULOSKELETAL: No gross deformity of the lower extremities noted. No c lubbing. No cyanosis. SKIN: Good skin turgor. Well perfused. NEUROLOGIC: Cranial nerves II through XII grossly intact. No focal or lateralizing signs. PSYCH: Appropriate affect. Alert and oriented to person, place and time. CLINICAL LABS: Reviewed. WBC normal. Hemoglobin normal from 03/01/2023 ASSESSMENT: 1. Small bowel obstruction due to adhesions 2. Oropharyngeal thrush 3. Bleeding gastritis PLAN: 1. Complains of thrush as he had thrush prior. Nystatin oral solution prescrib ed. 2. He is drinking moderate fluids. Protonix 40 mg BID for gastritis with bleeding. 3. Tylenol IV scheduled Objective - Vital Signs Vital signs: Vital Signs Temp 98.4 F 03/02/23 14:00 Pulse 106 H 03/02/23 14:00 Resp 18 03/02/23 14:00 BP 115/80 03/02/23 14:00 Pulse Ox 93 L 03/02/23 14:00 FiO2 Intake & Output 03/01/23 03/02/23 03/02/23 18:59 06:59 18:59 Intake Total 1100 1100 Output Total 2000 1350 Balance -900 -250 Intake: Intake, IV Titration 1100 1100 Amount ACETAMINOPHEN IV (For NPO 200 200 ) 1,000 mg In Empty Bag 1 bag @ 400 mls/hr IVPB Q6HR [facility] Rx#:[id number] Lactated Ringers 1,000 ml 900 900 @ 0 mls/hr IV .[facility] [employer] [facility] Rx#:[id number] Output: Gastric Drainage 900 950 Urine 1100 400 Other: Voiding Method Indwelling Catheter Indwelling Catheter Indwelling Catheter - Labs CBC & Chem 7: 03/01/23 07:20 03/01/23 07:20 Labs: Abnormal Lab Results - Last 24 Hours (Table) 03/01/23 03/01/23 03/02/23 Range/Units 16:37 20:13 05:58 POC Glucose (mg/dL) 203 H 158 H 180 H (70-110) mg/dL 03/02/23 Range/Units 11:30 POC Glucose (mg/dL) 183 H (70-110) mg/dL
[2023-03-02] MEDS: fentaNYL PCA 500 MCG/50 ML BAG IV SCH (16:24)
[2023-03-02 16:31] LABS: Glucose,Whole Blood 176 mg/dL (70-110)
[2023-03-02] MEDS: NYSTATIN 100,000 UNIT/ML SUSP 500,000 UNIT/5 ML CUP PO SCH ×2 (18:06→20:20)
[2023-03-02 18:30] VITALS: BMI 32.3
[2023-03-02] MEDS: ONDANSETRON 4 MG/2 ML VIAL IVP PRN (18:50)
[2023-03-02] MEDS: PANTOPRAZOLE 40 MG/10 ML VIAL IVP SCH (20:09)
[2023-03-02 20:15] LABS: Glucose,Whole Blood 152 mg/dL (70-110)
[2023-03-02] MEDS: GABAPENTIN 300 MG CAP PO SCH (20:19)
[2023-03-02] MEDS: LEVOTHYROXINE 75 MCG TAB PO SCH (20:20)
[2023-03-03] MEDS: ACETAMINOPHEN IV (For NPO) 1,000 MG in EMPTY BAG 1 BAG IVPB SCH ×4 (05:27→23:39)
[2023-03-03] MEDS: INSULIN DETEMIR (LEVEMIR) 100 UNIT/ML SYR SQ SCH ×2 (05:43→22:25)
[2023-03-03] MEDS: INSULIN ASPART (NovoLOG) 100 UNIT/ML VIAL SQ SCH ×4 (05:43→22:25)
[2023-03-03 05:44] LABS: Glucose,Whole Blood 175 mg/dL (70-110)
[2023-03-03] MEDS: PANTOPRAZOLE 40 MG/10 ML VIAL IVP SCH ×2 (08:33→22:02)
[2023-03-03] MEDS: NYSTATIN 100,000 UNIT/ML SUSP 500,000 UNIT/5 ML CUP PO SCH ×4 (08:33→22:25)
[2023-03-03] MEDS: HYDROCORTISONE SUCCINATE 100 MG/2 ML VIAL IV SCH (08:33)
[2023-03-03] MEDS: PATIENT'S OWN (Linaclotide [Linzess] 145 MCG Capsule) PO SCH (11:14)
[2023-03-03 11:21] LABS: Glucose,Whole Blood 203 mg/dL (70-110)
--- NOTE | 2023-03-03 11:42 | P.PN ---
Subjective Progress Note Date: 03/03/23 Principal diagnosis: He reports, "I am starving and wants to eat." He is passing flatus. Start clear liquid diet. Clamp NGT. Re-connect for nausea/vomiting. Objective - Vital Signs Vital signs: Vital Signs Temp 97.9 F 03/03/23 06:56 Pulse 98 03/03/23 07:20 Resp 17 03/03/23 07:20 BP 115/72 03/03/23 06:56 Pulse Ox 96 03/03/23 06:56 FiO2 Intake & Output 03/02/23 03/03/23 03/03/23 18:59 06:59 18:59 Intake Total 500 750 Output Total 225 2700 Balance 275 -1950 Weight 105.233 kg Intake: Intake, IV Titration 500 600 Amount ACETAMINOPHEN IV (For NPO 100 ) 1,000 mg In Empty Bag 1 bag @ 400 mls/hr IVPB Q6HR [facility] Rx#:[id number] ACETAMINOPHEN IV (For NPO 200 ) 1,000 mg In Empty Bag 1 bag @ 400 mls/hr IVPB Q6HR [facility] Rx#:[id number] Sodium Chloride 0.9% 50 400 400 ml @ 0 mls/hr IV .[facility] with ceFAZolin 2,000 mg Rx#:[id number] Oral 150 Output: Gastric Drainage 2100 Urine 225 600 Other: Voiding Method Indwelling Catheter Urinal Urinal # Bowel Movements 0 0 - Labs CBC & Chem 7: 03/01/23 07:20 03/01/23 07:20 Labs: Abnormal Lab Results - Last 24 Hours (Table) 03/02/23 03/02/23 03/03/23 Range/Units 16:30 20:14 05:41 POC Glucose (mg/dL) 176 H 152 H 175 H (70-110) mg/dL 03/03/23 Range/Units 11:19 POC Glucose (mg/dL) 203 H (70-110) mg/dL
[2023-03-03 12:48] LABS: HCT 45.9 % (39.0-53.0); HGB 14.9 gm/dL (13.0-17.5); MCH 31.6 pg (25.0-35.0); MCHC 32.5 g/dL (31.0-37.0); MCV 97.1 fL (80.0-100.0); Mean Platelet Volume 7.7; Platelet Count 339 k/uL (150-450); RBC 4.73 m/uL (4.30-5.90); RDW 13.3 % (11.5-15.5); WBC 7.2 k/uL (3.8-10.6)
[2023-03-03 13:06] LABS: ALT 32 U/L (4-49); AST 26 U/L (17-59); African American GFR (CKD) >90 (>60 ml/min/1.73 sqM); Albumin 3.7 g/dL (3.5-5.0); Albumin/Globulin Ratio 1.2; Alkaline Phosphatase 78 U/L (38-126); Anion Gap 20 mmol/L; Blood Urea Nitrogen 24 mg/dL (9-20); Calcium 9.1 mg/dL (8.4-10.2); Carbon Dioxide 21 mmol/L (22-30); Chloride 100 mmol/L (98-107); Globulin 3.2 g/dL; Glucose 204 mg/dL (74-99); Non-African American GFR(CKD) >90 (>60 ml/min/1.73 sqM); Sodium 141 mmol/L (137-145); Total Protein 6.9 g/dL (6.3-8.2)
[2023-03-03 13:13] LABS: Potassium 3.6 mmol/L (3.5-5.1)
[2023-03-03] MEDS: fentaNYL PCA 500 MCG/50 ML BAG IV SCH (13:32)
[2023-03-03] MEDS: KETOROLAC 15 MG/ML 1 ML VIAL IVP PRN (13:37)
--- NOTE | 2023-03-03 14:44 | P.PN ---
Subjective Progress Note Date: 03/03/23 58-year-old gentleman with past medical history significant for diabetes, h ypertension, suspected UC, arthritis, diverticulitis with resulting partial colectomy with ostomy and ostomy reversal presented to the ER because of abdominal pain. Patient stated the abdominal pain started a few days ago, located in the bilateral lower quadrant, intermittent, feels like distended, no aggravating or relieving factors associated with abdominal pain. Patient does admit to decreased in frequency of bowel movements last bowel movement 4 days ago. Complain of nausea but no vomiting. Denies any fever or chills. No complaint of chest pain or shortness of breath. Because of the abdominal pain patient came to the ER Initial lab work done in the ER showed WBC 8, hemoglobin 17.3, platelet count 387, sodium 1:30, potassium 5.6, BUN 16, creatinine 0.8, lactate 3.8, total bilirubin 1.7, CT abdominal and pelvis done showed high-grade small bowel obstruction with transition point the central anterior lower abdominal likely from adhesion. Similar mild intra-and extrahepatic biliary duct dilatation status post cholecystectomy Chest x-ray done in the ER showed chronic changes without acute pulmonary process Patient admitted to medicine service 03/01. Patient seen and examined. Patient underwent Exploratory laparotomy with small bowel resection and extensive lysis of adhesions. NG tube in place. Still not passing gas. States abdominal pain has improved 03/02. Patient seen and examined. Dose of Solu-Cortef decreased to 25 mg every 12. Complaining of abdominal pain, no nausea or vomiting. NG tube in place 03/03. Patient seen and examined. Currently eating popsicles, currently on clear liquid diet REVIEW OF SYSTEMS: CONSTITUTIONAL: No fever, no malaise,. CARDIOVASCULAR: No chest pain, no palpitations, no syncope. PULMONARY: No shortness of breath, no cough, GASTROINTESTINAL: As mentioned in HPI NEUROLOGICAL: No headaches, no weakness, PHYSICAL EXAMINATION: GENERAL: The patient is alert and oriented x3, not in any acute distress. Well developed, well nourished. NG tube in place HEENT: Pupils are round and equally reacting to light. EOMI. No scleral icterus. No conjunctival pallor. Normocephalic, atraumatic. No pharyngeal erythema. No thyromegaly. CARDIOVASCULAR: S1 and S2 present. No murmurs, rubs, or gallops. PULMONARY: Chest is clear to auscultation, no wheezing or crackles. ABDOMEN: Tender, laparotomy surgical incision seen, and no guarding. Bowel sounds are sluggish MUSCULOSKELETAL: No joint swelling or deformity. EXTREMITIES: No cyanosis, clubbing, or pedal edema. NEUROLOGICAL: Gross neurological examination did not reveal any focal deficits. SKIN: No rashes. Assessment and plan Small bowel obstruction Hyperkalemia Hypercalcemia Hypertension Hypothyroidism Monitor vital signs Monitor CBC Monitor CMP Status post Exploratory laparotomy with small bowel resection and extensive lysis of adhesions Continue IV fluids continue pain management Continue stress dose of steroids in the form of Solu-Cortef, dose decreased to 25 mg daily, can be switched to oral prednisone from tomorrow Monitor blood sugar levels, continue sliding scale insulin, continue Lantus 5 units twice a day Currently on clear liquid diet Follow-up surgery recommendations Labs and medication were reviewed.. Continue same treatment. Continue with symptomatic treatment. Resume home medication. Monitor labs and vitals. DVT and GI prophylaxis. Further recommendations as per clinical course of the patient Dictation was produced using [employer] dictation software. please excuse any grammatical, word or spelling errors. Objective - Vital Signs Vital signs: Vital Signs Temp 97.9 F 03/03/23 06:56 Pulse 98 03/03/23 07:20 Resp 17 03/03/23 07:20 BP 115/72 03/03/23 06:56 Pulse Ox 96 03/03/23 06:56 FiO2 Intake & Output 03/02/23 03/03/23 03/03/23 18:59 06:59 18:59 Intake Total 500 750 Output Total 225 2700 150 Balance 275 -1950 -150 Weight 105.233 kg Intake: Intake, IV Titration 500 600 Amount ACETAMINOPHEN IV (For NPO 100 ) 1,000 mg In Empty Bag 1 bag @ 400 mls/hr IVPB Q6HR [facility] Rx#:[id number] ACETAMINOPHEN IV (For NPO 200 ) 1,000 mg In Empty Bag 1 bag @ 400 mls/hr IVPB Q6HR [facility] Rx#:[id number] Sodium Chloride 0.9% 50 400 400 ml @ 0 mls/hr IV .[facility] with ceFAZolin 2,000 mg Rx#:[id number] Oral 150 Output: Gastric Drainage 2100 Urine 225 600 150 Other: Voiding Method Indwelling Catheter Urinal Urinal # Bowel Movements 0 0 1 - Labs CBC & Chem 7: 03/03/23 11:19 03/03/23 11:19 Labs: Abnormal Lab Results - Last 24 Hours (Table) 03/02/23 03/02/23 03/03/23 Range/Units 16:30 20:14 05:41 Carbon Dioxide (22-30) mmol/L BUN (9-20) mg/dL Glucose (74-99) mg/dL POC Glucose (mg/dL) 176 H 152 H 175 H (70-110) mg/dL 03/03/23 03/03/23 Range/Units 11:19 11:19 Carbon Dioxide 21 L (22-30) mmol/L BUN 24 H (9-20) mg/dL Glucose 204 H (74-99) mg/dL POC Glucose (mg/dL) 203 H (70-110) mg/dL
[2023-03-03 16:48] LABS: Glucose,Whole Blood 194 mg/dL (70-110)
[2023-03-03 19:49] LABS: Glucose,Whole Blood 250 mg/dL (70-110)
[2023-03-03] MEDS: ONDANSETRON 4 MG/2 ML VIAL IVP PRN (20:20)
[2023-03-03] MEDS: GABAPENTIN 300 MG CAP PO SCH (22:25)
[2023-03-03] MEDS: LEVOTHYROXINE 75 MCG TAB PO SCH (22:25)
[2023-03-04] MEDS: KETOROLAC 15 MG/ML 1 ML VIAL IVP PRN ×4 (00:43→17:27)
[2023-03-04] MEDS: oxyCODONE-APAP 10-325MG 1 EACH TAB PO PRN ×4 (02:45→21:34)
[2023-03-04 05:48] LABS: Glucose,Whole Blood 301 mg/dL (70-110)
[2023-03-04] MEDS: ACETAMINOPHEN IV (For NPO) 1,000 MG in EMPTY BAG 1 BAG IVPB SCH (06:18)
[2023-03-04] MEDS: INSULIN ASPART (NovoLOG) 100 UNIT/ML VIAL SQ SCH ×4 (06:35→21:35)
[2023-03-04] MEDS: INSULIN DETEMIR (LEVEMIR) 100 UNIT/ML SYR SQ SCH ×2 (06:36→21:35)
[2023-03-04] MEDS: ONDANSETRON 4 MG/2 ML VIAL IVP PRN (06:45)
[2023-03-04] MEDS: NYSTATIN 100,000 UNIT/ML SUSP 500,000 UNIT/5 ML CUP PO SCH ×4 (07:53→19:39)
[2023-03-04] MEDS: PANTOPRAZOLE 40 MG/10 ML VIAL IVP SCH ×2 (08:52→21:35)
[2023-03-04] MEDS ORDERED: HYDROCORTISONE SUCCINATE 100 MG/2 ML VIAL IV SCH (09:00)
[2023-03-04] MEDS: PATIENT'S OWN (Linaclotide [Linzess] 145 MCG Capsule) PO SCH (10:51)
[2023-03-04 11:12] LABS: Glucose,Whole Blood 325 mg/dL (70-110)
--- NOTE | 2023-03-04 13:52 | P.PN ---
Subjective Progress Note Date: 03/04/23 Principal diagnosis: Small bowel obstruction Patient is doing better today. He is having multiple loose stools. No nausea or vomiting. Pain is improved. He is tolerating clear liquids. Objective - Vital Signs Vital signs: Vital Signs Temp 97.3 F L 03/04/23 13:15 Pulse 88 03/04/23 13:15 Resp 17 03/04/23 13:15 BP 127/78 03/04/23 13:15 Pulse Ox 95 03/04/23 13:15 FiO2 Intake & Output 03/03/23 03/04/23 03/04/23 18:59 06:59 18:59 Output Total 150 Balance -150 Output: Urine 150 Other: Voiding Method Urinal Urinal Urinal # Voids 1 # Bowel Movements 1 - Exam Abdomen: Soft, nondistended, incision clean and dry, minimal tenderness - Labs CBC & Chem 7: 03/03/23 11:19 03/03/23 11:19 Labs: Abnormal Lab Results - Last 24 Hours (Table) 03/03/23 03/03/23 03/04/23 Range/Units 16:47 19:48 05:47 POC Glucose (mg/dL) 194 H 250 H 301 H (70-110) mg/dL 03/04/23 Range/Units 11:09 POC Glucose (mg/dL) 325 H (70-110) mg/dL Assessment and Plan (1) Small bowel obstruction Narrative/Plan: Patient doing well at this time. Continue slowly advancing diet. Begin full liquids. Ambulate. Anticipate discharge tomorrow. Current Visit: Yes Status: Acute Code(s): K56.609 - UNSP INTESTNL OBST, UNSP TO PARTIAL VERSUS COMPLETE OBST SNOMED Code(s): 278587884
--- NOTE | 2023-03-04 14:42 | P.PN ---
Subjective Progress Note Date: 03/04/23 58-year-old gentleman with past medical history significant for diabetes, h ypertension, suspected UC, arthritis, diverticulitis with resulting partial colectomy with ostomy and ostomy reversal presented to the ER because of abdominal pain. Patient stated the abdominal pain started a few days ago, located in the bilateral lower quadrant, intermittent, feels like distended, no aggravating or relieving factors associated with abdominal pain. Patient does admit to decreased in frequency of bowel movements last bowel movement 4 days ago. Complain of nausea but no vomiting. Denies any fever or chills. No complaint of chest pain or shortness of breath. Because of the abdominal pain patient came to the ER Initial lab work done in the ER showed WBC 8, hemoglobin 17.3, platelet count 387, sodium 1:30, potassium 5.6, BUN 16, creatinine 0.8, lactate 3.8, total bilirubin 1.7, CT abdominal and pelvis done showed high-grade small bowel obstruction with transition point the central anterior lower abdominal likely from adhesion. Similar mild intra-and extrahepatic biliary duct dilatation status post cholecystectomy Chest x-ray done in the ER showed chronic changes without acute pulmonary process Patient admitted to medicine service 03/01. Patient seen and examined. Patient underwent Exploratory laparotomy with small bowel resection and extensive lysis of adhesions. NG tube in place. Still not passing gas. States abdominal pain has improved 03/02. Patient seen and examined. Dose of Solu-Cortef decreased to 25 mg every 12. Complaining of abdominal pain, no nausea or vomiting. NG tube in place 03/03. Patient seen and examined. Currently eating popsicles, currently on clear liquid diet 03/04. Patient seen and examined. Currently on full liquid diet, possible discharge tomorrow REVIEW OF SYSTEMS: CONSTITUTIONAL: No fever, no malaise,. CARDIOVASCULAR: No chest pain, no palpitations, no syncope. PULMONARY: No shortness of breath, no cough, GASTROINTESTINAL: As mentioned in HPI NEUROLOGICAL: No headaches, no weakness, PHYSICAL EXAMINATION: GENERAL: The patient is alert and oriented x3, not in any acute distress. Well developed, well nourished. HEENT: Pupils are round and equally reacting to light. EOMI. No scleral icterus. No conjunctival pallor. Normocephalic, atraumatic. No pharyngeal erythema. No thyromegaly. CARDIOVASCULAR: S1 and S2 present. No murmurs, rubs, or gallops. PULMONARY: Chest is clear to auscultation, no wheezing or crackles. ABDOMEN: Tender, laparotomy surgical incision seen, and no guarding. Bowel sounds are sluggish MUSCULOSKELETAL: No joint swelling or deformity. EXTREMITIES: No cyanosis, clubbing, or pedal edema. NEUROLOGICAL: Gross neurological examination did not reveal any focal deficits. SKIN: No rashes. Assessment and plan Small bowel obstruction Hyperkalemia Hypercalcemia Hypertension Hypothyroidism Monitor vital signs Monitor CBC Monitor CMP Status post Exploratory laparotomy with small bowel resection and extensive lysis of adhesions Continue IV fluids continue pain management switched to oral prednisone home dose Monitor blood sugar levels, continue sliding scale insulin, continue Lantus 5 units twice a day Currently on full liquid diet, advance diet per surgery Follow-up surgery recommendations Labs and medication were reviewed.. Continue same treatment. Continue with symptomatic treatment. Resume home medication. Monitor labs and vitals. DVT and GI prophylaxis. Further recommendations as per clinical course of the patient Dictation was produced using [employer] dictation software. please excuse any grammatical, word or spelling errors. Objective - Vital Signs Vital signs: Vital Signs Temp 97.5 F L 03/04/23 07:27 Pulse 94 03/04/23 08:00 Resp 16 03/04/23 08:00 BP 112/74 03/04/23 07:27 Pulse Ox 95 03/04/23 07:27 FiO2 Intake & Output 03/03/23 03/04/23 03/04/23 18:59 06:59 18:59 Output Total 150 Balance -150 Output: Urine 150 Other: Voiding Method Urinal Urinal Urinal # Voids 1 # Bowel Movements 1 - Labs CBC & Chem 7: 03/03/23 11:19 03/03/23 11:19 Labs: Abnormal Lab Results - Last 24 Hours (Table) 03/03/23 03/03/23 03/03/23 Range/Units 11:19 11:19 16:47 Carbon Dioxide 21 L (22-30) mmol/L BUN 24 H (9-20) mg/dL Glucose 204 H (74-99) mg/dL POC Glucose (mg/dL) 203 H 194 H (70-110) mg/dL 03/03/23 03/04/23 Range/Units 19:48 05:47 Carbon Dioxide (22-30) mmol/L BUN (9-20) mg/dL Glucose (74-99) mg/dL POC Glucose (mg/dL) 250 H 301 H (70-110) mg/dL
[2023-03-04 17:00] LABS: Glucose,Whole Blood 334 mg/dL (70-110)
[2023-03-04] MEDS: fentaNYL PCA 500 MCG/50 ML BAG IV SCH (18:40)
[2023-03-04] MEDS: GABAPENTIN 300 MG CAP PO SCH (19:38)
[2023-03-04 19:47] LABS: Glucose,Whole Blood 275 mg/dL (70-110)
[2023-03-04] MEDS: LEVOTHYROXINE 75 MCG TAB PO SCH (21:34)
[2023-03-05] MEDS: KETOROLAC 15 MG/ML 1 ML VIAL IVP PRN (00:08)
[2023-03-05] MEDS: oxyCODONE-APAP 10-325MG 1 EACH TAB PO PRN ×2 (03:45→10:27)
[2023-03-05 05:44] LABS: Glucose,Whole Blood 251 mg/dL (70-110)
[2023-03-05] MEDS: INSULIN ASPART (NovoLOG) 100 UNIT/ML VIAL SQ SCH ×2 (06:24→12:29)
[2023-03-05] MEDS: INSULIN DETEMIR (LEVEMIR) 100 UNIT/ML SYR SQ SCH (06:24)
[2023-03-05] MEDS: ONDANSETRON 4 MG/2 ML VIAL IVP PRN (08:12)
[2023-03-05] MEDS: PANTOPRAZOLE 40 MG/10 ML VIAL IVP SCH (08:12)
[2023-03-05] MEDS: NYSTATIN 100,000 UNIT/ML SUSP 500,000 UNIT/5 ML CUP PO SCH ×2 (08:13→12:38)
[2023-03-05] MEDS: PATIENT'S OWN (Linaclotide [Linzess] 145 MCG Capsule) PO SCH (08:13)
[2023-03-05 08:34] VITALS: BP 110/69; PULSE 86; RESP 16; TEMP 98.2
[2023-03-05] MEDS ORDERED: predniSONE 5 MG TAB PO SCH (09:00)
--- NOTE | 2023-03-05 10:32 | P.DS ---
Providers Date of admission: 02/27/23 20:52 Expected date of discharge: 03/05/23 Attending physician: Constantine Blankenship MD Consults: 02/27/23 20:52 Consult Physician Routine Consulting Provider: Roberth Delgado Consult Reason/Comments: SBO Do you want consulting provider notified?: Already Contacted Primary care physician: [facility] Course: Discharge diagnoses; Small bowel obstruction Hyperkalemia Hypercalcemia Hypertension Hypothyroidism Hospital course; 58-year-old gentleman with past medical history significant for diabetes, hypertension, suspected UC, arthritis, diverticulitis with resulting partial colectomy with ostomy and ostomy reversal presented to the ER because of abdominal pain. Patient stated the abdominal pain started a few days ago, located in the bilateral lower quadrant, intermittent, feels like distended, no aggravating or relieving factors associated with abdominal pain. Patient does admit to decreased in frequency of bowel movements last bowel movement 4 days ago. Complain of nausea but no vomiting. Denies any fever or chills. No complaint of chest pain or shortness of breath. Because of the abdominal pain patient came to the ER Initial lab work done in the ER showed WBC 8, hemoglobin 17.3, platelet count 387, sodium 1:30, potassium 5.6, BUN 16, creatinine 0.8, lactate 3.8, total bilirubin 1.7, CT abdominal and pelvis done showed high-grade small bowel obstruction with transition point the central anterior lower abdominal likely from adhesion. Similar mild intra-and extrahepatic biliary duct dilatation status post cholecystectomy Chest x-ray done in the ER showed chronic changes without acute pulmonary pro cess Patient admitted to medicine service 03/01. Patient seen and examined. Patient underwent Exploratory laparotomy with small bowel resection and extensive lysis of adhesions. NG tube in place. Still not passing gas. States abdominal pain has improved 03/02. Patient seen and examined. Dose of Solu-Cortef decreased to 25 mg every 12. Complaining of abdominal pain, no nausea or vomiting. NG tube in place 03/03. Patient seen and examined. Currently eating popsicles, currently on clear liquid diet 03/04. Patient seen and examined. Currently on full liquid diet, possible dis charge tomorrow 03/05. Patient seen and examined. Tolerating diet. Surgery cleared the patient for discharge PHYSICAL EXAMINATION: GENERAL: The patient is alert and oriented x3, not in any acute distress. Well developed, well nourished. HEENT: Pupils are round and equally reacting to light. EOMI. No scleral icterus. No conjunctival pallor. Normocephalic, atraumatic. No pharyngeal erythema. No thyromegaly. CARDIOVASCULAR: S1 and S2 present. No murmurs, rubs, or gallops. PULMONARY: Chest is clear to auscultation, no wheezing or crackles. ABDOMEN: laparotomy surgical incision seen, and no guarding. MUSCULOSKELETAL: No joint swelling or deformity. EXTREMITIES: No cyanosis, clubbing, or pedal edema. NEUROLOGICAL: Gross neurological examination did not reveal any focal deficits. SKIN: No rashes. Dictation was produced using [employer] dictation software. please excuse any grammatical, word or spelling errors. Patient Condition at Discharge: Stable Plan - Discharge Summary New Discharge Prescriptions: Continue Gabapentin 300 mg PO BID PRN PRN Reason: Pain Levothyroxine Sodium [Synthroid] 75 mcg PO HS Famotidine [Pepcid] 20 mg PO BID oxyCODONE HCL [oxyCODONE HCL (IR)] 10 mg PO Q4H PRN PRN Reason: Pain Insulin Glargine,Hum.rec.anlog [Lantus Solostar Pen] 36 units SQ BID Omeprazole 40 mg PO BID polyethylene glycoL 3350 [Miralax] 17 gm PO HS Mercaptopurine [Purinethol] 50 mg PO BID predniSONE 3 mg PO DAILY Gabapentin 300 mg PO HS Linaclotide [Linzess] 145 mcg PO DAILY Chlorthalidone [Hygroton] 25 mg PO DAILY Losartan Potassium [Cozaar] 100 mg PO DAILY Insulin Aspart [NovoLOG Flexpen] See Protocol SQ TID-W/MEALS PRN PRN Reason: HIGH BLOOD SUGAR predniSONE 2 mg PO HS Discharge Medication List Gabapentin 300 mg PO BID PRN 07/03/21 [History] Gabapentin 300 mg PO HS 07/03/21 [History] Levothyroxine Sodium [Synthroid] 75 mcg PO HS 07/03/21 [History] Mercaptopurine [Purinethol] 50 mg PO BID 07/03/21 [History] predniSONE 3 mg PO DAILY 07/03/21 [History] Chlorthalidone [Hygroton] 25 mg PO DAILY 02/27/23 [History] Famotidine [Pepcid] 20 mg PO BID 02/27/23 [History] Insulin Aspart [NovoLOG Flexpen] See Protocol SQ TID-W/MEALS PRN 02/27/23 [History] Insulin Glargine,Hum.rec.anlog [Lantus Solostar Pen] 36 units SQ BID 02/27/23 [History] Linaclotide [Linzess] 145 mcg PO DAILY 02/27/23 [History] Losartan Potassium [Cozaar] 100 mg PO DAILY 02/27/23 [History] Omeprazole 40 mg PO BID 02/27/23 [History] oxyCODONE HCL [oxyCODONE HCL (IR)] 10 mg PO Q4H PRN 02/27/23 [History] polyethylene glycoL 3350 [Miralax] 17 gm PO HS 02/27/23 [History] predniSONE 2 mg PO HS 02/27/23 [History] Follow up Appointment(s)/Referral(s): Radha Chavarria DO [Primary Care Provider] - 1-2 days
[2023-03-05 11:22] LABS: HCT 42.2 % (39.6-50.0); HGB 14.3 d/dL (13.0-17.0); MCH 31.6 pg (27.0-32.0); MCHC 33.9 d/dL (32.0-37.0); MCV 93.2 FL (80.0-97.0); Mean Platelet Volume 10.1 FL (9.5-12.2); NRBC Per 100 WBC 0 X 10*3/uL (0.00-0.01); Platelet Count 333 X 10*3/uL (140-440); RBC 4.53 X 10*6/uL (4.40-5.60); RDW 13.2 % (11.5-14.5); WBC 6.42 X 10*3/uL (4.50-10.00)
[2023-03-05 11:29] LABS: ALT 34 U/L (10-49); AST 25 U/L (14-35); Albumin 3.6 d/dL (3.8-4.9); Albumin/Globulin Ratio 1.24 Ratio (1.60-3.17); Alkaline Phosphatase 75 U/L (41-126); Blood Urea Nitrogen 17.1 mg/dL (9.0-27.0); Calcium 8.8 mg/dL (8.7-10.3); Carbon Dioxide 27.4 mmol/L (21.6-31.8); Chloride 96 mmol/L (96-109); Globulin 2.9 d/dL (1.6-3.3); Glucose 257 mg/dL (70-110); Sodium 138 mmol/L (135-145); Total Bilirubin 0.4 mg/dL (0.3-1.2); Total Protein 6.5 d/dL (6.2-8.2)
[2023-03-05 11:39] LABS: Glucose,Whole Blood 268 mg/dL (70-110)
--- NOTE | 2023-03-05 13:46 | P.PN ---
Subjective Progress Note Date: 03/05/23 CHIEF COMPLAINT: Small bowel obstruction HISTORY OF PRESENT ILLNESS: Postop day #5 status post exploratory laparotomy with small bowel resection and extensive lysis of adhesions. Patient reports his pain is controlled. Tolerating full liquid diet. He is having bowel movements. Afebrile. WBC is 6.4 to Hgb 14.3. BMP pending PHYSICAL EXAM: VITAL SIGNS: Reviewed. GENERAL: Well-developed in no acute distress. ABDOMEN: Soft. Nondistended. Incision sites clean dry and intact NEUROLOGIC: Alert and oriented. Cranial nerves II through XII grossly intact. ASSESSMENT: 1. Small bowel obstruction status post exploratory laparotomy with small bowel resection and extensive lysis of adhesions PLAN: -Patient can be discharged from surgical standpoint when medically cleared -Recommend continuing a full liquid diet at discharge -Continue home pain medication regimen Physician Rn Emergency Room note has been reviewed by physician. Signing provider agrees with the documented findings, assessment, and plan of care. Objective - Vital Signs Vital signs: Vital Signs Temp 98.2 F 03/05/23 07:23 Pulse 86 03/05/23 07:23 Resp 16 03/05/23 07:23 BP 110/69 03/05/23 07:23 Pulse Ox 95 03/05/23 07:23 FiO2 Intake & Output 03/04/23 03/05/23 03/05/23 18:59 06:59 18:59 Weight 105.233 kg Other: Voiding Method Urinal # Voids 4 0 - Labs CBC & Chem 7: 03/05/23 07:07 03/05/23 07:07 Labs: Abnormal Lab Results - Last 24 Hours (Table) 03/04/23 03/04/23 03/05/23 Range/Units 16:58 19:46 05:43 Potassium (3.5-5.5) mmol/L Anion Gap (4.00-12.00) mmol/L Glucose (70-110) mg/dL POC Glucose (mg/dL) 334 H 275 H 251 H (70-110) mg/dL Albumin (3.8-4.9) d/dL Albumin/Globulin Ratio (1.60-3.17) Ratio 03/05/23 03/05/23 Range/Units 07:07 11:37 Potassium 3.0 L (3.5-5.5) mmol/L Anion Gap 14.60 H (4.00-12.00) mmol/L Glucose 257 H (70-110) mg/dL POC Glucose (mg/dL) 268 H (70-110) mg/dL Albumin 3.6 L (3.8-4.9) d/dL Albumin/Globulin Ratio 1.24 L (1.60-3.17) Ratio
== END 2023-03-05 12:44 | disposition home or self-care (01) | DRG 329 ==
LOC: EC 15:37 → 4SSUR 20:52
PROVIDERS: ADMIT Internal Medicine; ATTEND Internal Medicine
PROC: 0D9670Z Drainage of Stomach with Drainage Device, Via Natural or Artificial Opening (ICD-10-PCS; 2023-02-27)
PROC: 0DN80ZZ Release Small Intestine, Open Approach (ICD-10-PCS; 2023-02-28)
PROC: 0DB80ZZ Excision of Small Intestine, Open Approach (ICD-10-PCS; principal; 2023-02-28 18:55)
DX: K56.50 Intestinal adhesions [bands], unspecified as to partial versus complete obstruction (principal); K29.71 Gastritis, unspecified, with bleeding; B37.0 Candidal stomatitis; E24.9 Cushing's syndrome, unspecified; B37.89 Other sites of candidiasis; E86.0 Dehydration; E06.3 Autoimmune thyroiditis; I10 Essential (primary) hypertension; N28.89 Other specified disorders of kidney and ureter; E83.52 Hypercalcemia; E87.5 Hyperkalemia; Z88.2 Allergy status to sulfonamides; Z88.5 Allergy status to narcotic agent; Z88.1 Allergy status to other antibiotic agents; Z90.49 Acquired absence of other specified parts of digestive tract; K31.84 Gastroparesis; E11.43 Type 2 diabetes mellitus with diabetic autonomic (poly)neuropathy; F41.9 Anxiety disorder, unspecified; Z79.4 Long term (current) use of insulin; Z79.890 Hormone replacement therapy; Z79.899 Other long term (current) drug therapy; Z93.3 Colostomy status
CPT/HCPCS: 36415; 71045; 74177; 74250; 80048; 80053; 81003; 82150; 83036; 83605; 83690; 84132; 85025; 85027; 85610; 85730; 86850; 86900; 86901; 88307; 96361; 96374; 96375; 96376; 99291

== ENCOUNTER 2024-12-17 15:36 | Emergency (ER) | payer MEDICARE ==
[2024-12-17 15:55] VITALS: RESP 18; TEMP 98
--- NOTE | 2024-12-17 16:51 | ED ---
Upper Extremity HPI - General Chief Complaint: Extremity Injury, Upper Stated Complaint: Medication rxn Time Seen by Provider: 12/17/24 16:47 Source: patient, family, RN notes reviewed Mode of arrival: ambulatory Limitations: no limitations - History of Present Illness Initial Comments: 59-year-old male presenting for right hand pain since 2 PM this morning. States he went to his orthopedic doctor who performed bilateral Kenalog injections in both hands for his arthritis. States he has had these injections multiple times in the past with no issues. States his physician "froze his hand" more than usual today as he has told him the injections have been painful in the past. States on his way home he started to experience extreme hand pain only on the right side and some red discoloration and some spots on his right hand. States the pain has improved now to about a 7. - Related Data Home Medications Medication Instructions Recorded Confirmed Gabapentin 300 mg PO BID PRN 07/03/21 02/27/23 Gabapentin 300 mg PO HS 07/03/21 02/27/23 Levothyroxine Sodium [Synthroid] 75 mcg PO HS 07/03/21 02/27/23 Mercaptopurine [Purinethol] 50 mg PO BID 07/03/21 02/27/23 predniSONE 3 mg PO DAILY 07/03/21 02/27/23 Chlorthalidone [Hygroton] 25 mg PO DAILY 02/27/23 02/27/23 Famotidine [Pepcid] 20 mg PO BID 02/27/23 02/27/23 Insulin Aspart [NovoLOG Flexpen] See Protocol SQ TID-W/MEALS PRN 02/27/23 02/27/23 Insulin Glargine,Hum.rec.anlog 36 units SQ BID 02/27/23 02/27/23 [Lantus Solostar Pen] Linaclotide [Linzess] 145 mcg PO DAILY 02/27/23 02/27/23 Losartan Potassium [Cozaar] 100 mg PO DAILY 02/27/23 02/27/23 Omeprazole 40 mg PO BID 02/27/23 02/27/23 oxyCODONE HCL [oxyCODONE HCL (IR)] 10 mg PO Q4H PRN 02/27/23 02/27/23 polyethylene glycoL 3350 [Miralax] 17 gm PO HS 02/27/23 02/27/23 predniSONE 2 mg PO HS 02/27/23 02/27/23 Allergies Allergy/AdvReac Type Severity Reaction Status Date / Time Sulfa (Sulfonamide Allergy Rash/Hives Verified 12/17/24 15:56 Antibiotics) amoxicillin AdvReac Diarrhea/C Verified 12/17/24 15:56 Diff hydromorphone [From Dilaudid] AdvReac SEE COMMENT Verified 12/17/24 15:56 Macrolide Antibiotics AdvReac Diarrhea/C Verified 12/17/24 15:56 Diff Oxazolidinone Antibacterials AdvReac Diarrhea/C Verified 12/17/24 15:56 Diff Penicillins AdvReac Diarrhea/C Verified 12/17/24 15:56 Diff Review of Systems ROS Statement: Those systems with pertinent positive or pertinent negative responses have been documented in the HPI. ROS Other: All systems not noted in ROS Statement are negative. Past Medical History Past Medical History: Diabetes Mellitus, GERD/Reflux, Hypertension, Musculoskeletal Disorder, Neurologic Disorder, Renal Disease, Thyroid Disorder Additional Past Medical History / Comment(s): Cushings syndrome, uncontrolled diabetes, hasimoto's, Metabolic Myopathy, Shingles (May 2021), partially functioning kidneys, gastroperesis History of Any Multi-Drug Resistant Organisms: None Reported Past Surgical History: Appendectomy, Bowel Resection, Cholecystectomy Additional Past Surgical History / Comment(s): lipoma removals, sinus surgery x 2, oral surgery, ostomy and reversal (15 yrs ago) Past Anesthesia/Blood Transfusion Reactions: No Reported Reaction Past Psychological History: Anxiety Smoking Status: Never smoker Past Alcohol Use History: None Reported Past Drug Use History: None Reported General Exam Limitations: no limitations General appearance: alert, in no apparent distress Head exam: Present: atraumatic, normocephalic, normal inspection Right Elbow exam: Present: normal inspection, full ROM. Absent: tenderness, swelling Forearm Wrist exam: Present: normal inspection, full ROM. Absent: tenderness, swelling Hand Wrist exam: Present: full ROM, tenderness, swelling, erythema. Absent: normal inspection (Mild edema and scattered areas of blanching erythema present on ventral aspect of hand. No purulence or drainage. Radial pulse intact), ab rasion, laceration, deformity Vascular: Present: normal capillary refill, radial pulse. Absent: vascular compromise Neurological exam: Present: alert, oriented X3 Psychiatric exam: Present: normal affect, normal mood Skin exam: Present: warm, dry, intact, normal color. Absent: rash Course Vital Signs 12/17/24 15:51 Temperature 98 F Pulse Rate 112 H Respiratory 18 Rate Blood Pressure 176/95 O2 Sat by Pulse 97 Oximetry Medical Decision Making - Medical Decision Making Was pt. sent in by a medical professional or institution (, [place], HELMET BINDER, urgent care, hospital, or shelter...) When possible be specific @ -No Did you speak to anyone other than the patient for history (EMS, parent, family, police, friend...)? What history was obtained from this source @ -No Did you review nursing and triage notes (agree or disagree)? Why? @ -I reviewed and agree with nursing and triage notes Were old charts reviewed (outside hosp., previous admission, EMS record, old EKG, old radiological studies, urgent care reports/EKG's, shelter records)? Report findings @ -No old charts were reviewed Differential Diagnosis (chest pain, altered mental status, abdominal pain women, abdominal pain men, vaginal bleeding, weakness, fever, dyspnea, syncope, headache, dizziness, GI bleed, back pain, seizure, CVA, palpatations, mental health, musculoskeletal)? @ -Differential Musculoskeletal Muscular strain, contusion, ligament sprain, fracture, arthritis, septic arthritis, bursitis, cellulitis, muscle spasm, nerve compression, DVT, arterial occlusion, herpes zoster, electrolyte abnormality, tumor.... This is not meant to be in all inclusive list EKG interpreted by me (3pts min.). @ -None X-rays interpreted by me (1pt min.). @ -None done CT interpreted by me (1pt min.). @ -None done U/S interpreted by me (1pt. min.). @ -None done What testing was considered but not performed or refused? (CT, X-rays, U/S, labs)? Why? @ -None What meds were considered but not given or refused? Why? @ -None Did you discuss the management of the patient with other professionals (professionals i.e. , CARLY, HELMET BINDER, lab, RT, psych nurse, social science teacher, senior sharepoint developer, teacher, combat information center officer, porter sample case)? Give summary @ -No Was smoking cessation discussed for >3mins.? @ -No Was critical care preformed (if so, how long)? @ -No Were there social determinants of health that impacted care today? How? ( Homelessness, low income, unemployed, alcoholism, drug addiction, transportation, low edu. Level, literacy, decrease access to med. care, fci, rehab)? @ -No Was there de-escalation of care discussed even if they declined (Discuss DNR or withdrawal of care, Hospice)? DNR status @ -No What co-morbidities impacted this encounter? (DM, HTN, Smoking, COPD, CAD, Cancer, CVA, ARF, Chemo, Hep., AIDS, mental health diagnosis, sleep apnea, morbid obesity)? @ -None Was patient admitted / discharged? Hospital course, mention meds given and route, prescriptions, significant lab abnormalities, going to OR and other pertinent info. @ -Discharge. 59-year-old male presenting for right hand pain status post Kenalog injection 3 hours ago. No lip/tongue swelling or difficulty breathing/swallowing. Neurovascularly intact to the right upper extremity. Provided with IM Toradol and IM Benadryl. Upon reevaluation, patient reports improvement of symptoms. Discussed diagnosis of allergic reaction. Appropriate return precautions and supportive care discussed. Advised to follow-up with PCP or orthopedic doctor on Friday for reevaluation. Case was discussed with my ED attending Dr. Carmen. Undiagnosed new problem with uncertain prognosis? @ -No Drug Therapy requiring intensive monitoring for toxicity (Heparin, Nitro, Insulin, Cardizem)? @ -No Were any procedures done? @ -No Diagnosis/symptom? @ -Allergic reaction, right hand pain Acute, or Chronic, or Acute on Chronic? @ -Acute Uncomplicated (without systemic symptoms) or Complicated (systemic symptoms)? @ -Uncomplicated Side effects of treatment? @ -No Exacerbation, Progression, or Severe Exacerbation? @ -No Poses a threat to life or bodily function? How? (Chest pain, [place], [place], pneumonia, PE, COPD, DKA, ARF, appy, cholecystitis, CVA, Diverticulitis, Homicidal, Suicidal, threat to staff... and all critical care pts) @ -Not at this time Disposition Clinical Impression: Right hand pain, Allergic reaction Disposition: HOME SELF-CARE Condition: Stable Additional Instructions: Apply ice and elevate the right hand. Take Benadryl and anti-inflammatories as discussed. Follow-up with your doctor on Friday for reevaluation. Please return to the Emergency Department if symptoms worsen or any other concerns. Is patient prescribed a controlled substance at d/c from ED?: No Referrals: Radha Chavarria DO [Primary Care Provider] - 1-2 days Time of Disposition: 18:26
[2024-12-17] MEDS: KETOROLAC 15 MG/ML 1 ML VIAL IM STA (16:54)
[2024-12-17] MEDS: diphenhydrAMINE 50 MG/ML 1 ML VIAL IM STA (16:54)
[2024-12-17 18:37] VITALS: BP 154/89; PULSE 101
== END 2024-12-17 18:37 | disposition home or self-care (01) ==
LOC: EC 15:36
DX: T78.40XA Allergy, unspecified, initial encounter (principal); M79.641 Pain in right hand; Z88.0 Allergy status to penicillin; Z88.1 Allergy status to other antibiotic agents; Z88.2 Allergy status to sulfonamides; Z88.5 Allergy status to narcotic agent; Z88.8 Allergy status to other drugs, medicaments and biological substances
CPT/HCPCS: 99283; 96372; J1200; J1885